=== PATIENT | male | born 1995 | race Two or more races ===

== ENCOUNTER 2022-12-11 02:15 | Emergency (ER) | payer SELFPAY | END 2022-12-11 03:31 | disposition home or self-care (01) | LOC: ANHED 03:09 | PROVIDERS: Emergency Provider Emergency Medicine | DX: L73.9 Follicular disorder, unspecified (principal) | CPT/HCPCS: 99283; A9270 ==

== ENCOUNTER 2022-12-12 23:20 | Inpatient (IN) | payer SELFPAY ==
--- NOTE | ~2022-12-12 | CT_ITS ---
EXAMINATION: CT diagnostic chest wo con DATE: 12/19/2022 19:35 INDICATION: Dialysis catheter position, right pleural effusion TECHNIQUE: Computed tomography (CT) of the chest was performed with 100 mL Omnipaque-350 intravenous contrast. Automated exposure control and iterative reconstruction technique were employed. The dose-l ength product was 182.81 mGy-cm. COMPARISON: X-ray chest, same date. FINDINGS: CHEST: Thoracic aorta: No significant dilation or calcification. Lung parenchyma and airways: Dependent right lower lobe opacification, dependent segmental/subsegment al right middle lobe, right upper lobe, and medial left lower lobe opacification. Thoracic inlet, axillae and chest wall: No thyroid or soft tissue mass. No axillary lymphadenopathy. Subcutaneous gas in the right lower neck. A tunnel right-sided dialysis catheter enters the right upp er chest and traverses along the right posterior medial aspect of the mediastinum, terminating in the right inferomedial pleural space. Mediastinum: No mass or lymphadenopathy. Heart and pericardium: Normal heart size. No pericardial effusion. Coronary artery calcifications: Absent. Pleura: Small volume right pneumothorax. Large volume mixed density right pleural fluid collection in cluding dependent hyperdensity likely representing blood clot. Upper abdomen: No significant finding. Thoracic bones: No acute osseous finding in the chest. IMPRESSION: Malpositioned right dialysis catheter terminating in the right inferomedial pleural space. Right hemopneumothorax with a small pneumothorax component and large hemothorax component, including a large volume of clot. Dependent multilobar pulmonary opacities presumably related to atelectasis, noting that infection or aspiration are not excluded. Results reported telephonically to Leonie Lopez RN by Dr. Rios at 7:50 PM on 12/19/2022. Reviewed, dictated and finalized at location K. IMPRESSION: Malpositioned right dialysis catheter terminating in the right inferomedial ple ural space. Right hemopneumothorax with a small pneumothorax component and large hemothorax component, including a large volume of clot. Dependent multilobar pulmonary opacities presumably related to atelectasis, not ing that infection or aspiration are not excluded. Results reported telephonically to Leonie Lopez RN by Dr. Rios at 7:50 PM on .
--- NOTE | ~2022-12-12 | CT_ITS ---
EXAMINATION: CT abdomen pelvis w con DATE: 12/13/2022 03:44 INDICATION: Lymphadenopathy. Inguinal abscess. TECHNIQUE: Computed tomography (CT) of the abdomen and pelvis was performed with 100 mL Omnipaque 350 intravenous contrast. Automated exposure control and iterative reconstruction technique were employe d. The dose-length product was 434.31 mGy-cm. COMPARISON: None. FINDINGS: The visualized portions of the lung bases demonstrate mild atelectasis. No pleural effusion . The heart size is normal. No pericardial effusion. There is food in the esophagus and may be dysmot ility or reflux. The liver, gallbladder, spleen, pancreas, adrenal glands, and kidneys are normal. Th e appendix is normal. There are no dilated loops of bowel. The prostate is mildly enlarged. There is fat stranding in left inguinal region and the scrotum, consistent with cellulitis. There is a 12 mm t hick-walled abscess in the scrotum. There is mild bilateral external iliac and left inguinal lymphade nopathy. There is mild lumbar spondylosis. IMPRESSION: 1. 12 mm abscess in the scrotum. 2. Fat stranding in left inguinal region and scrotum, consistent with cellulitis. 3. Mild left inguinal and bilateral external iliac lymphadenopathy, likely reactive. Reviewed, dictated and finalized at location E. IMPRESSION: 1. 12 mm abscess in the scrotum. 2. Fat stranding in left inguinal region and scrotum, consistent with celluliti s. 3. Mild left inguinal and bilateral external iliac lymphadenopathy, likely reac tive.
--- NOTE | ~2022-12-12 | NM_ITS ---
EXAMINATION: NM renal flow and function DATE: 12/18/2022 13:22 INDICATION: Worsening renal insufficiency TECHNIQUE: 8.5 mCi Tc-99m MAG3 was administered IV. 40 mg furosemide was administered IV immediately afterward. The patient was scanned in the supine position. A posterior abdominal radionuclide angiog shiva was obtained. A subsequent time course of static images of the kidneys, ureters, and bladder was obtained. COMPARISON: None FINDINGS: The posterior abdominal radionuclide angiogram and sequential static images show normal size, positio n, and morphology of the kidneys. Peak renal parenchymal uptake was >29 min in left kidney with scarlett nually rising renal activity curves through 30 minutes of imaging and >22 min in right kidney (normal peak 3-5 minutes) which appears to plateau and the final 2 minutes of the study. The relative early renal uptake was 49% on the left and 51% on the right (<40% is abnormal). No abnormalities of the u reters or bladder are seen. Indeterminate T1/2 clearance from both kidneys with no evident activity clearance from either kidney over the 30 minutes of imaging. Notes on interpretation: T1/2 <10 minutes is normal, 10-15 minutes is low grade obstruction of questi onable clinical significance, 15-20 minutes is partial obstruction that is likely clinically signific ant, >20 minutes is high grade obstruction. Note that false positives may be seen with supine positio geni, dehydration, severely dilated nonobstructed kidney, atonic collecting system, poor renal functi on, and chronic furosemide use. IMPRESSION: 1. Symmetric markedly delayed time to peak activity in both kidneys with no evident activity clearan ce of the 30 minutes of imaging consistent with severe bilateral nonspecific nephropathy. This preclu aamir assessment for obstruction however there is no evident hydronephrosis to suggest this. Reviewed, dictated and finalized at location A. IMPRESSION: 1. Symmetric markedly delayed time to peak activity in both kidneys with no ev ident activity clearance of the 30 minutes of imaging consistent with severe bi lateral nonspecific nephropathy. This precludes assessment for obstruction emanuel dexter there is no evident hydronephrosis to suggest this.
--- NOTE | ~2022-12-12 | US_ITS ---
US renal BI DATE: 12/16/2022 17:33 INDICATION: Acute renal insufficiency TECHNIQUE: Real-time imaging of kidneys and urinary bladder COMPARISON: 12/13/2022 CT abdomen pelvis FINDINGS: The kidneys each measure approximately 12 cm length. There is abnormal increased echogenici ty of the renal parenchyma bilaterally, a finding usually ascribed to chronic renal disease. No hydronephrosis of either kidney is detected. The urinary bladder is evacuated. IMPRESSION: Abnormal increased echogenicity throughout the cortex of both kidneys, suggesting bilater al chronic renal disease Reviewed, dictated and finalized at Location A. Reviewed, dictated and finalized at location A. IMPRESSION: Abnormal increased echogenicity throughout the cortex of both kidne ys, suggesting bilateral chronic renal disease
--- NOTE | ~2022-12-12 | XR_ITS ---
XR chest port-a-cath/central 12/19/2022 11:03 Indication: Dialysis catheter placement. Procedure: AP portable chest. With underlying compressive atelectasis. Comparison: No prior studies for comparison. Findings: Right IJ dual-lumen dialysis catheter tips in the caudal aspect of the SVC. Large right ple ural effusion with underlying compressive atelectasis. Cardiac contour is unremarkable. No pneumothor ax identified. Impression: 1: Dual-lumen dialysis catheter tips in the condyle aspect of the SVC just proximal to the cavoatrial junction. 2: Large right pleural effusion Reviewed, dictated and finalized at location A. Impression: 1: Dual-lumen dialysis catheter tips in the condyle aspect of the SVC just prox imal to the cavoatrial junction. 2: Large right pleural effusion
--- NOTE | ~2022-12-12 | US_ITS ---
EXAMINATION: US scrotum doppler DATE: 12/14/2022 11:45 INDICATION: Scrotal pain and swelling TECHNIQUE: Testicular sonogram utilizing grayscale and Doppler COMPARISON: CT, 12/13/2022 FINDINGS: The right testis measures 3 x 4.7 x 2.6 cm. The left testis measures 3.2 x 3.6 x 2.3 cm. Th ere is skin thickening of the scrotum. There are multiple hypoechoic areas seen in the skin of the sc rotum. A 3.9 x 1.9 x 1.7 cm hypoechoic area seen in the inferior/mid scrotum. There is a 3.4 x 6.6 x 2.4 cm hypoechoic area of the inferior/posterior mid scrotal sac. There is a 2 x 1.8 x 1.9 cm hypoech oic area superior to the left testicle. The largest visualized possible fluid collection measures 1.6 cm in the inferior/mid scrotum. There is normal vascular flow to both testes. The right epididymis i s normal with normal vascular flow. The left epididymis is normal with normal vascular flow. There is no varicocele or hydrocele. IMPRESSION: 1. Cellulitis with multiple areas of phlegmon/abscess of the scrotum. The largest possible fluid abelardo ection measures up to 1.6 cm in the inferior/mid scrotum. Reviewed, dictated and finalized at location B. IMPRESSION: 1. Cellulitis with multiple areas of phlegmon/abscess of the scrotum. The large st possible fluid collection measures up to 1.6 cm in the inferior/mid scrotum.
--- NOTE | ~2022-12-12 | XR_ITS ---
XR fl guide central line place Dialysis catheter placement TECHNIQUE: Fluoroscopy used during dialysis catheter placement performed by [Greg Travis] on 12/19/2022. 3 minutes 37 seconds of fluoroscopy time with 3 fluoroscopic images captured. FINDINGS: Correlate with procedure note. IMPRESSION: Fluoroscopy used during dialysis catheter placement.. Reviewed, dictated and finalized at location A.
[2022-12-12 23:24] VITALS: BP 119/68; PULSE 96; RESP 16; TEMP 37.2; O2SAT 97
[2022-12-13] VITALS (9 sets, daily range): BP systolic 97–111; BP diastolic 52–71; PULSE 68–91; RESP 15–18; TEMP 36.6–37.4; O2SAT 94–100; BMI 26.6
[2022-12-13] MEDS: MORPHINE SULFATE (*CRX) 4 MG/ML INJ IV PUSH ×4 (03:09→21:41)
[2022-12-13] MEDS: SODIUM CHLORIDE 0.9% IV 1,000 ML 999 ML IV CONT (03:09)
[2022-12-13 03:14] LABS: Basophils Percent Auto 0.3 % (0.2-1.2); Eosinophils Absolute Auto 0.2 K/mm3 (0-0.3); Eosinophils Percent Auto 1.3 % (0-4.4); Hematocrit 43.6 % (42.0-52.0); Hemoglobin 15.2 g/dL (14.0-18.0); Immature Granulocyte Percent A 0.7 % (0-0.5); Lymphocytes Percent Auto 13.7 % (18.3-44.2); Mean Corpuscular HGB Conc 34.9 g/dl (32-36); Mean Corpuscular Hemoglobin 30.2 pg (26-34); Mean Corpuscular Volume 86.7 fl (80-100); Mean Platelet Volume 9.4 fl (7.4-10.4); Monocytes Absolute Auto 1.4 K/mm3 (0.1-0.6); Monocytes Percent Auto 8.9 % (2.6-8.5); Neutrophils Absolute Auto 11.6 K/mm3 (1.3-6.7); Neutrophils Percent Auto 75.1 % (45.5-73.1); Platelet Count Result 250 k/mm3 (150-375); Red Blood Count 5.03 M/mm3 (4.6-6.20); White Blood Count 15.4 K/mm3 (4.5-10.0)
[2022-12-13 03:26] LABS: Alanine Aminotransferase 37 U/L (6-50); Albumin Level 4.6 g/dL (3.5-5.1); Alkaline Phosphatase 89 U/L (38-126); Anion Gap 10 mmol/L (8-16); Aspartate Amino Transferase 40 U/L (17-59); Bilirubin,Total 0.6 mg/dL (0.2-1.3); Blood Urea Nitrogen 13 mg/dL (9-20); Calcium 9.2 mg/dL (8.4-10.2); Carbon Dioxide 28 mmol/L (22-30); Chloride 98 mmol/L (98-107); Estimated CRCL calculation 98 ml/min; Estimated Glomerular Filt Rate > 60; Glucose 100 mg/dL (65-110); Potassium 4.2 mmol/L (3.4-5.0); Sodium 136 mmol/L (137-145)
[2022-12-13 03:27] LABS: Lactic Acid Reflex 1.6 mmol/L (0.7-2.0)
[2022-12-13] MEDS: diphenhydrAMINE HCl INJ 50 MG/ML VIAL 25 MG IV PUSH (04:33)
--- NOTE | 2022-12-13 04:44 | ED.GENADULT ---
HPI - General Adult General Chief complaint: Wound/Laceration Stated complaint: potential staph infection Time Seen by Provider: 12/13/22 02:31 History of Present Illness HPI narrative: Patient 27-year-old gentleman who presents the emergency department with chief complaint of swelling in the groin area. The patient reports he has recently been seen for folliculitis in his perineal area and inguinal area the patient was started on Bactrim and has taken this for a day and a half the patient reports he has had some drainage in the perineal area and reports that he has some lymph nodes that are swollen and reports the area is painful. Patient denies fever denies dysuria denies problems with defecation. Related Data Allergies Allergy/AdvReac Type Severity Reaction Status Date / Time No Known Allergies Allergy Verified 12/13/22 02:41 Review of Systems Review of Systems: A 10 system review of systems was completed on the patient and is negative except for what is stated in the HPI. Nursing and ancillary documentation was reviewed. Exam Narrative: GENERAL: Well-appearing, well-nourished, and in no acute distress. HEAD: Normocephalic, atraumatic. EYES: PERRLA and EOMI. ENT: Nares clear, no rhinorrhea or epistaxis. Mucous membranes moist. NECK: Supple. CHEST: Clear to auscultation. No respiratory distress. HEART: Regular rate and rhythm. No murmur heard. Normal peripheral pulses. ABDOMEN: Soft, nontender, nondistended, normal active bowel sounds. : There is lymphadenopathy present in the left inguinal area there is swelling of the scrotum there is no crepitance there is a small draining abscess in the perineal body area there is slight erythema of the scrotum EXTREMITIES: Normal range of motion. No edema. SKIN: Warm, dry, no rash. NEURO: No focal deficits. Alert and oriented x3. PSYCH: Normal mood and affect. Course Vital Signs Vital signs: Vital Signs Temperature 37.2 C 12/12/22 23:24 Pulse Rate 96 12/12/22 23:24 Respiratory Rate 16 12/12/22 23:24 Blood Pressure 119/68 12/12/22 23:24 Pulse Oximetry 97 12/12/22 23:24 Oxygen Delivery Room Air 12/12/22 23:24 Temperature 37.1 C 12/13/22 04:10 Pulse Rate 74 12/13/22 06:07 Respiratory Rate 15 12/13/22 06:07 Blood Pressure 97/61 L 12/13/22 06:07 Pulse Oximetry 98 12/13/22 06:07 Oxygen Delivery Room Air 12/12/22 23:24 Medical Decision Making MDM Narrative Medical decision making narrative: Differential diagnosis includes deep abscess, cellulitis, Laboratory studies were obtained and the patient which showed a white count of 15,000. There is no physical exam findings consistent with Angela's gangrene the patient is not a diabetic CT scan of the abdomen pelvis showed significant lymphadenopathy and also a large area of cellulitis with a small 12 mm abscess in the scrotum The case was discussed with urology who will consult on the patient the patient will be admitted to the hospitalist service for IV antibiotics and failed outpatient therapy. Vital Signs Vital Signs: Vital Signs Temperature 37.2 C 12/12/22 23:24 Pulse Rate 96 12/12/22 23:24 Respiratory Rate 16 12/12/22 23:24 Blood Pressure 119/68 12/12/22 23:24 Pulse Oximetry 97 12/12/22 23:24 Oxygen Delivery Room Air 12/12/22 23:24 Temperature 37.1 C 12/13/22 04:10 Pulse Rate 74 12/13/22 06:07 Respiratory Rate 15 12/13/22 06:07 Blood Pressure 97/61 L 12/13/22 06:07 Pulse Oximetry 98 12/13/22 06:07 Oxygen Delivery Room Air 12/12/22 23:24 Lab Data 12/13/22 03:03 12/13/22 03:03 Labs: Lab Results 12/13/22 12/13/22 Range/Units 03:03 04:52 WBC 15.4 H (4.5-10.0) K/mm3 RBC 5.03 (4.6-6.20) M/mm3 Hgb 15.2 (14.0-18.0) g/dL Hct 43.6 (42.0-52.0) % MCV 86.7 (80-100) fl MCH 30.2 (26-34) pg MCHC 34.9 (32-36) g/dl RDW 12.0 (11.5-14.5) % Plt Count
[2022-12-13 04:59] LABS: Appearance Urine Clear (Clear); Bilirubin Urine Negative (Negative); Blood Urine Negative (Negative); Color Urine Yellow (Yellow); Glucose Urine UA Negative (Negative); Ketones Urine Negative (Negative); Leukocyte Esterase Ur Negative LEU/UL (Negative); Nitrate Urine Negative (Negative); Protein Urine Negative (Negative)
[2022-12-13 05:07] LABS: Specific Grav Ur 1.097 (1.001-1.035)
[2022-12-13 05:09] LABS: Add Urine Microscopic? NO
[2022-12-13] MEDS: PIPERACILLN/TAZ 3.375GM/NS50ML 3.375 GM/50 ML BAG IVPB ×4 (06:49→23:15)
[2022-12-13] MEDS: SODIUM CHLORIDE 0.9% IV 1,000 ML 125 ML IV CONT (06:54)
--- NOTE | 2022-12-13 07:37 | PM.IMHP ---
H&P: HPI History of Present Illness Date/Time: 12/13/22 07:37 Chief Complaint: Groin pain, swelling and drainage Narrative: 27yo healthy male who presents with groin pain, swelling and drainage. Over the past 6 months, patient has noted intermittent groin rash that he has been treating with lotion. About 7-10 days ago patient noted multiple lumps in his groin. He has been staying with a friend and believes that they were related to flea bites. No fever or chills. He tried and triple antibiotic ointment for few days without benefit. He stopped this about 4 days ago. He tried alcohol spray once but that was too painful. He has been using Excedrin for pain and also was given [place] by a friend. He presented to the emergency room on 12/11/2022 and was diagnosed with folliculitis treated with Bactrim. He did note that the lesions came to a head. He did open these up with knife. It would drain yellow-green fluid and pain with improved. Lesions however would then increase in size. He has been eating okay but had decreased appetite. No nausea or vomiting. No symptoms of reflux. No constipation or diarrhea. He denies any chest pain shortness of breath but has been anxious/distressed with issues associated with his girlfriend. He has noted that he has had increasing lymph nodes multi in the left groin. Because of this reason he presented emergency room for evaluation because a friend fold admission be concerned about a potential staph infection. In the emergency room patient was hemodynamically stable. White count was [address] of the abdomen pelvis showed mild atelectasis, food in the esophagus and mildly enlarged prostate. There is fat stranding in left inguinal region and the scrotum consistent with cellulitis. This is a 12 mm thick walled abscess in the scrotum. He has mild bilateral external iliac and left inguinal lymphadenopathy. The case was discussed with Urology. Patient does not have diabetes. He denies any risk factors for HIV and declines testing at this time. Patient was started on Zosyn and Vanco and admitted for further care. Review of Systems Review of Systems: All systems reviewed & are unremarkable except as noted in HPI and below PMFSH Past Medical History Medical History (Updated 12/13/22 @ 07:54 by Emile Rooney MD) No significant past medical history Surgical History Surgical History (Updated 12/13/22 @ 07:48 by Emile Rooney MD) H/O inguinal hernia repair repaired at 24yo Family History Family History (Updated 12/13/22 @ 07:49 by Emile Rooney MD) Mother Schizophrenia Father Heart disease Cerebrovascular accident Diabetes mellitus Social History Social History (Updated 12/13/22 @ 07:51 by Emile Rooney MD) Social History: Patient is from [place] by way of [place]. He moved up from [place] about 6 months ago. He smokes 1 pack of cigarettes every 2 weeks. No drug use. He drinks but 2-3 alcoholic drinks per month on average. He is currently renting space from a friend. 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 Full code. Meds Home Medications and Allergies Allergies Allergy/AdvReac Type Severity Reaction Status Date / Time No Known Allergies Allergy Verified 12/13/22 02:41 Vital Signs Vital Signs - 24 hr 12/12/22 23:24 12/13/22 04:10 12/13/22 06:07 Temperature 98.9 F 98.7 F Pulse Rate 96 68 74 Respiratory Rate 16 15 15 Blood Pressure 119/68 109/71 97/61 L Pulse Oximetry 97 100 98 Oxygen Delivery Room Air 12/13/22 06:57 12/13/22 07:24 Temperature Pulse Rate 74 75 Respiratory Rate 15 18 Blood Pressure 97/61 L 111/62 Pulse Oximetry 100 100 Oxygen Delivery Exam Narrative: AF 98.7 111/62 75 18 100% ra Gen - well-nourished, well-developed male in no acute respiratory distress who is nontoxic-appearing lying semi recumbent in bed HEENT - normocephalic. Atraumatic. Pupils equal round and reactive. Extraocular m
--- NOTE | 2022-12-13 10:14 | WPDURCON ---
Assessment and Plan Assessment and plan (1) Cellulitis, scrotum: Code(s): N49.2 - Inflammatory disorders of scrotum Status: Acute Plan 27M with scrotal cellulitis - no indications currently for surgical intervention; he can eat; will continue to monitor for worsening Urology Consult Note HPI Date Seen: 12/13/22 Requesting Physician: Andrzej Harmon MD Primary Care Provider: [facility] Consult Narrative Narrative: Cayden Stiles is a 27 year old male admitted for scrotal cellulitis. Had a perineal abscess that spontaneously drained, but was failing outpatient antibiotics. CT shows cellulitis without drainable abscess, gas, etc. Never happened before. Review of Systems Review of Systems: All systems reviewed & are unremarkable except as noted in HPI and below PMFSH Past Medical History Medical History No significant past medical history Surgical History Surgical History H/O inguinal hernia repair repaired at 24yo Family History Family History Mother Schizophrenia Father Heart disease Cerebrovascular accident Diabetes mellitus Social History Social History Social History: Patient is from [place] by way of [place]. He moved up from [place] about 6 months ago. He smokes 1 pack of cigarettes every 2 weeks. No drug use. He drinks but 2-3 alcoholic drinks per month on average. He is currently renting space from a friend. 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 Meds Home Medications and Allergies Allergies Allergy/AdvReac Type Severity Reaction Status Date / Time No Known Allergies Allergy Verified 12/13/22 02:41 Vital Signs Vital Signs - 24 hr 12/12/22 23:24 12/13/22 04:10 12/13/22 06:07 Temperature 37.2 C 37.1 C Pulse Rate 96 68 74 Respiratory Rate 16 15 15 Blood Pressure 119/68 109/71 97/61 L Pulse Oximetry 97 100 98 Oxygen Delivery Room Air 12/13/22 06:57 12/13/22 07:24 12/13/22 09:00 Temperature 36.6 C Pulse Rate 74 75 79 Respiratory Rate 15 18 16 Blood Pressure 97/61 L 111/62 108/68 Pulse Oximetry 100 100 100 Oxygen Delivery Exam Narrative: normal appearing 27M. scrotal cellulitis and significant swelling without gas, abscess, or necrosis. pinpoint drainage spot in the perineum with no residual expressable fluid Results Labs 12/13/22 03:03 12/13/22 03:03 Labs: Short CBC 12/13/22 Range/Units 03:03 WBC 15.4 H (4.5-10.0) K/mm3 Hgb 15.2 (14.0-18.0) g/dL Hct 43.6 (42.0-52.0) % Plt Count 250 (150-375) k/mm3 BMP 12/13/22 03:03 Sodium 136 L Potassium 4.2 Chloride 98 Carbon Dioxide 28 BUN 13 Creatinine 1.00 Glucose 100 Calcium 9.2 Liver Function 12/13/22 Range/Units 03:03 Total Bilirubin 0.6 (0.2-1.3) mg/dL AST 40 (17-59) U/L ALT 37 (6-50) U/L Alkaline Phosphatase 89 (38-126) U/L Albumin 4.6 (3.5-5.1) g/dL Urine 12/13/22 Range/Units 04:52 Urine Color Yellow (Yellow) Urine Appearance Clear (Clear) Urine pH 6.0 (5.0-9.0) Ur Specific [place] 1.097 H (1.001-1.035) Urine Protein Negative (Negative) mg/dL Urine Glucose (UA) Negative (Negative) mg/dL
[2022-12-13 11:35] LABS: Basophils Percent Auto 0.2 % (0.2-1.2); Eosinophils Absolute Auto 0.2 K/mm3 (0-0.3); Eosinophils Percent Auto 1.2 % (0-4.4); Hematocrit 38.4 % (42.0-52.0); Hemoglobin 13.1 g/dL (14.0-18.0); Immature Granulocyte Absolute 0.09 K/mm3 (0.00-0.031); Immature Granulocyte Percent A 0.7 % (0-0.5); Lymphocytes Absolute Auto 1.22 K/mm3 (0.9-3.2); Lymphocytes Percent Auto 9.5 % (18.3-44.2); Mean Corpuscular HGB Conc 34.1 g/dl (32-36); Mean Corpuscular Hemoglobin 29.9 pg (26-34); Mean Corpuscular Volume 87.7 fl (80-100); Mean Platelet Volume 9.3 fl (7.4-10.4); Monocytes Absolute Auto 0.9 K/mm3 (0.1-0.6); Monocytes Percent Auto 6.9 % (2.6-8.5); Neutrophils Absolute Auto 10.5 K/mm3 (1.3-6.7); Neutrophils Percent Auto 81.5 % (45.5-73.1); Platelet Count Result 196 k/mm3 (150-375); Red Blood Count 4.38 M/mm3 (4.6-6.20); White Blood Count 12.9 K/mm3 (4.5-10.0)
--- NOTE | 2022-12-13 13:34 | ADMGEN ---
This patient, Cayden Stiles, was admitted to [facility] Room 319-01. Patient/family oriented to hospital policies and general routines including ID bracelet, bed and alarms, visiting hours, pain management, procedures, bathroom and other care routines, personal items, smoking policy, room service/diet, and visiting hours. Information on how to activate the Rapid Response Team has been discussed. Patient/Family are encouraged to report perceived risks to care and to ask questions if they do not understand what they are told or what they should do.
[2022-12-13] MEDS: HYDROcodone/acetaminophen (*CRX) 5-325 MG TABLET 1 TAB PO (17:01)
[2022-12-14] MEDS: HYDROcodone/acetaminophen (*CRX) 5-325 MG TABLET 1 TAB PO ×3 (03:08→18:25)
[2022-12-14 04:50] VITALS: BP 102/58; PULSE 80; RESP 16; TEMP 36.2; O2SAT 98
[2022-12-14] MEDS: PIPERACILLN/TAZ 3.375GM/NS50ML 3.375 GM/50 ML BAG IVPB ×3 (06:09→17:48)
[2022-12-14 07:27] LABS: Basophils Percent Auto 0.3 % (0.2-1.2); Eosinophils Absolute Auto 0.2 K/mm3 (0-0.3); Eosinophils Percent Auto 2.4 % (0-4.4); Hematocrit 41.5 % (42.0-52.0); Hemoglobin 13.8 g/dL (14.0-18.0); Immature Granulocyte Absolute 0.06 K/mm3 (0.00-0.031); Immature Granulocyte Percent A 0.6 % (0-0.5); Lymphocytes Absolute Auto 1.36 K/mm3 (0.9-3.2); Lymphocytes Percent Auto 14.1 % (18.3-44.2); Mean Corpuscular HGB Conc 33.3 g/dl (32-36); Mean Corpuscular Volume 90.2 fl (80-100); Mean Platelet Volume 9.6 fl (7.4-10.4); Monocytes Absolute Auto 0.7 K/mm3 (0.1-0.6); Monocytes Percent Auto 6.9 % (2.6-8.5); Neutrophils Absolute Auto 7.3 K/mm3 (1.3-6.7); Neutrophils Percent Auto 75.7 % (45.5-73.1); Platelet Count Result 221 k/mm3 (150-375); Red Cell Distribution Width 12.1 % (11.5-14.5); White Blood Count 9.7 K/mm3 (4.5-10.0)
[2022-12-14 07:34] LABS: Estimated CRCL calculation 108 ml/min; Estimated Glomerular Filt Rate > 60
--- NOTE | 2022-12-14 07:53 | WPDUROPN2 ---
Progress Note: A&P Assessment and Plan (1) Cellulitis, scrotum: Code(s): N49.2 - Inflammatory disorders of scrotum Status: Acute Assessment and Plan: Difficult to discern if there is any drainable fluid collection. Erythema seems improved over was described to be yesterday. Will get a scrotal ultrasound to look for drainable fluid collection. If present may need I and D. continue broad-spectrum antibiotics Subjective Subjective Date/Time Seen: 12/14/22 07:53 Interval history: Redness appears improved over what it was described to me by the urologist covering yesterday. He has multiple areas of firmness and induration in the suprapubic and scrotal area. It is difficult to discern if there is any drainable fluid collection He remains afebrile Exam Narrative: He is in no acute distress Normal breathing Alert orient x3 Normal phallus There is an area of induration in his left suprapubic area. There is a pinpoint area of drainage. I cannot express any fluid. There are 3 small areas of the scrotum where there is also some induration. Very difficult to tell if there is drainable fluid collection. There is no necrosis or signs of Angela's gangrene. Erythema appears improved over what was described to me Objective Data Vital Signs Vital Signs: Vital Signs - 24 hr 12/13/22 09:00 12/13/22 13:34 12/13/22 14:00 Temperature 97.8 F 97.9 F Pulse Rate 79 91 Respiratory Rate 16 16 Blood Pressure 108/68 103/52 L Pulse Oximetry 100 100 98 Oxygen Delivery Room Air 12/13/22 20:13 12/13/22 22:33 12/14/22 04:50 Temperature 99.4 F 98.8 F 97.2 F L Pulse Rate 85 80 Respiratory Rate 16 16 Blood Pressure 111/60 102/58 L Pulse Oximetry 94 98 Oxygen Delivery Intake/Output Intake/Output: Intake & Output 12/11/22 12/12/22 12/13/22 12/14/22 23:59 23:59 23:59 23:59 Intake Total 1680 550 Output Total 200 Balance 1480 550 Meds/Results Medications: Active Medications Generic Name Dose Route Start Last Admin Trade Name Freq PRN Reason Stop Dose Admin Acetaminophen 650 mg 12/13/22 07:58 Acetaminophen 325 Mg Tablet PO Q6H PRN Mild Pain (1-3) or Fever Hydrocodone Bitart/Acetaminophen 1 tab 12/13/22 07:58 12/14/22 03:08 Hydrocodone/Acetaminophen (*Crx) 5-325 Mg Tablet PO 1 tab Q6H PRN Administration Pain Rated 4-6 Piperacillin/Tazobactam/Dextrose 3.375 gm in 50 mls @ 100 mls/hr 12/13/22 12:00 12/14/22 06:39 Zosyn 3.375 Gm/Ns 50 Ml IVPB Infused Q6HR HOLGER Infusion Vancomycin HCl 1,500 mg in 500 mls @ 250 mls/hr 12/14/22 02:00 12/14/22 03:37 Vancomycin 1,500 Mg/D5w 500 Ml IVPB Infused Q18H HOLGER Infusion Morphine Sulfate 4 mg 12/13/22 06:44 12/13/22 21:41 Morphine Sulfate (*Crx) 4 Mg/Ml Inj IV PUSH 4 mg Q2H PRN Administration Pain Rated 7-10 Radiology Results: Labs Labs: Laboratory Results - last 24 hr 12/13/22 12/14/22 11:30 06:51 WBC 12.9 H 9.7 RBC 4.38 L 4.60 Hgb 13.1 L 13.8 L Hct 38.4 L 41.5 L MCV 87.7 90.2 MCH 29.9 30.0 MCHC 34.1 33.3 RDW 12.0 12.1 Plt Count 196 221 MPV 9.3 9.6 Immature Gran % (Auto) 0.7 H 0.6 H Neut % (Auto) 81.5 H 75.7 H Lymph % (Auto) 9.5 L 14.1 L Dawson % (Auto) 6.9 6.9 Eos % (Auto) 1.2 2.4 Baso % (Auto) 0.2 0.3 Lymph # (Auto) 1.22 1.36 Dawson # (Auto) 0.9 H 0.7 H Eos # (Auto) 0.2 0.2 Baso # (Auto) 0.0 0.0 Abs Immat Gran (auto) 0.09 H 0.06 H Absolute Neuts (auto) 10.5 H 7.3 H Absolute Nucleated RBC 0.0 0.0 Nucleated RBC % 0.0 0.0 Creatinine 0.90 Estim Creat Clear Calc 108 Estimated GFR > 60
[2022-12-14] MEDS: MORPHINE SULFATE (*CRX) 4 MG/ML INJ IV PUSH (10:33)
--- NOTE | 2022-12-14 10:37 | PC.NURSE ---
to ultrasound per w/c
[2022-12-14 14:00] VITALS: BP 119/60; PULSE 81; RESP 18; TEMP 37.3; O2SAT 99
--- NOTE | 2022-12-14 17:20 | PM.IMPN ---
Progress Note: A&P Assessment and Plan (1) Abscess of scrotum: Code(s): N49.2 - Inflammatory disorders of scrotum Status: Acute Assessment and Plan: Patient presents with complaints of swelling, pain and drainage from his groin area. CT scan shows 12mm abscess in the scrotum, fat stranding consistent with cellulitis and mild adenopathy. Prostate is mildly enlarged related to the inflammatory process. Zosyn and Vanco started. Urology was consulted. BCx NGTD WCx pending WBC normal now Scrotal US showing Cellulitis with multiple areas of phlegmon/abscess of the scrotum. The largest possible fluid collection measures up to 1.6 cm in the inferior/mid scrotum Pain controlled. Possible I&D tomorrow. Continue current pain control. Continue IV abx (2) Cellulitis, scrotum: Code(s): N49.2 - Inflammatory disorders of scrotum Status: Acute Assessment and Plan: As above (3) Inguinal adenopathy: Code(s): R59.0 - Localized enlarged lymph nodes Status: Acute Assessment and Plan: As above (4) Tobacco abuse: Code(s): Z72.0 - Tobacco use Status: Acute Assessment and Plan: Discussed beneftis of smoking cessation. Plan Food in the esophagus is unusual but the patient without symptoms of reflux. No complaints of achalasia. Will continue to monitor this. DVT prophylaxis -SCDs Code status -full Subjective Date/time seen: 12/14/22 17:20 Interval history: 27yo healthy male here for scrotal and groin redness, pain and swelling. Pain better controlled. eating normally. Exam Narrative: AF 99.2 119/60 81 18 99% ra Gen - NARD Chest - CTA bilaterally, nml RR CV - RRR S1/S2 Abd - soft, NT/ND -uncircumcised. Firm mass noted mid scrotum that with developing pustule and mild erythema. At the base of scrotum, firm mass was open and draining small yellowish white material. Erythematous patch with induration noted in the left inguinal area that was less red and less tender. Ext - no edema. Psych - normal mood and affect. Skin -as above Objective Data Vital Signs Vital Signs: Vital Signs - 24 hr 12/13/22 20:13 12/13/22 22:33 12/14/22 04:50 Temperature 99.4 F 98.8 F 97.2 F L Pulse Rate 85 80 Respiratory Rate 16 16 Blood Pressure 111/60 102/58 L Pulse Oximetry 94 98 12/14/22 14:00 Temperature 99.2 F Pulse Rate 81 Respiratory Rate 18 Blood Pressure 119/60 Pulse Oximetry 99 Intake/Output Intake/Output: Intake & Output 12/11/22 12/12/22 12/13/22 12/14/22 23:59 23:59 23:59 23:59 Intake Total 1680 1320 Output Total 200 Balance 1480 1320 Meds/Results Medications: Active Medications Generic Name Dose Route Start Last Admin Trade Name Freq PRN Reason Stop Dose Admin Acetaminophen 650 mg 12/13/22 07:58 Acetaminophen 325 Mg Tablet PO Q6H PRN Mild Pain (1-3) or Fever Hydrocodone Bitart/Acetaminophen 1 tab 12/13/22 07:58 12/14/22 12:08 Hydrocodone/Acetaminophen (*Crx) 5-325 Mg Tablet PO 1 tab Q6H PRN Administration Pain Rated 4-6 Piperacillin/Tazobactam/Dextrose 3.375 gm in 50 mls @ 100 mls/hr 12/13/22 12:00 12/14/22 12:30 Zosyn 3.375 Gm/Ns 50 Ml IVPB Infused Q6HR HOLGER Infusion Vancomycin HCl 1,500 mg in 500 mls @ 250 mls/hr 12/14/22 02:00 12/14/22 03:37 Vancomycin 1,500 Mg/D5w 500 Ml IVPB Infused Q18H HOLGER Infusion Morphine Sulfate 4 mg 12/13/22 06:44 12/14/22 10:33 Morphine Sulfate (*Crx) 4 Mg/Ml Inj IV PUSH 4 mg Q2H PRN Administration Pain Rated 7-10 Radiology Results: ITS Impressions Abdomen/Pelvis CT 12/13/22 05:47 IMPRESSION: 1. 12 mm abscess in the scrotum. 2. Fat stranding in left inguinal region and scrotum, consistent with cellulitis. 3. Mild left inguinal and bilateral external iliac lymphadenopathy, likely reactive. Scrotum Ultrasound 12/14/22 13:45 IMPRESSION: 1. Cellulitis with multiple ar
[2022-12-14 20:26] LABS: Vancomycin Trough < 5.0 ug/mL (10.0-20.0)
[2022-12-14 21:07] VITALS: PULSE 75; RESP 14; TEMP 36.5; O2SAT 99
[2022-12-15] VITALS (11 sets, daily range): BP systolic 105–123; BP diastolic 49–80; PULSE 68–84; RESP 11–19; TEMP 36.4–37.3; O2SAT 99–100
[2022-12-15] MEDS: PIPERACILLN/TAZ 3.375GM/NS50ML 3.375 GM/50 ML BAG IVPB ×4 (00:31→18:03)
[2022-12-15] MEDS: MORPHINE SULFATE (*CRX) 4 MG/ML INJ IV PUSH ×2 (00:32→18:03)
[2022-12-15 06:42] LABS: Estimated CRCL calculation 121 ml/min; Estimated Glomerular Filt Rate > 60
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
--- NOTE | 2022-12-15 14:18 | WPDANESEPPF ---
Anes - Initial Pre Proc Eval Procedure: Operation Date: 12/15/22 15:45 Proposed Procedures p Incision and Debridement Scrotal Abscess - Noel Wiley MD Date/Time: 12/15/22 14:18 Surgeon: Andrzej Harmon MD Pre Op Diagnosis: Scrotal Cellulitis/Abscess/ Inguinal Lymphadenopat Patient Data Age: 27 Gender: M Height: 1.75 m Weight: 81.8 kg Last Vital Signs Temp 36.9 C 12/15/22 13:58 Pulse 83 12/15/22 13:58 Resp 16 12/15/22 13:58 BP 122/74 12/15/22 13:58 Pulse Ox 99 12/15/22 13:58 O2 Del Method Room Air 12/15/22 08:00 Allergies Allergy/AdvReac Type Severity Reaction Status Date / Time No Known Allergies Allergy Verified 12/13/22 02:41 Home Medications Medication Instructions Recorded Confirmed Type No Home Medications 12/13/22 12/13/22 History Laboratory Tests 12/14/22 12/15/22 18:56 05:53 Creatinine 0.80 mg/dL (0.7-1.3) Estim Creat Clear Calc 121 ml/min Estimated GFR > 60 (59 - ) Vancomycin Trough < 5.0 L ug/mL (10.0-20.0) Patient hx anesthesia problems: none Family hx anesthesia problems: none Results Review: All pre-operative results and documents have been reviewed as part of the pre-operative evaluation. [facility] Past Medical History Medical History No significant past medical history Surgical History Surgical History H/O inguinal hernia repair repaired at 24yo Family History Family History Mother Schizophrenia Father Heart disease Cerebrovascular accident Diabetes mellitus Social History Social History Social History: Patient is from [place] by way of [place]. He moved up from [place] about 6 months ago. He smokes 1 pack of cigarettes every 2 weeks. No drug use. He drinks but 2-3 alcoholic drinks per month on average. He is currently renting space from a friend. 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 Full code. Smoking status: Current some day smoker Tobacco type: cigarettes Second hand tobacco smoke exposure: No Alcohol intake: never Substance use: never Lack of Transportation: No Lack of Food: Often True Current Housing: I Do Not Have Housing Concerned About Future Housing: YES Difficulty Paying Gas/Electric Bills: YES Difficulty Paying for Meds: YES Currently Unemployed: No Education: High School Diploma/GED Difficulty w/ Childcare or Family Care: No Spiritual care concerns: No Anes - Eval Final PreProcedure Day of Procedure 12/15/22 14:18 Patient weight: normal Heart: regular rate and rhythm Lungs: clear to auscultation Airway: Mallampati scale class II Neurological: alert and oriented Last oral intake: >/= 8 hours ASA classification: II Emergent: no Anesthetic plan: proceed Anesthesia type and monitoring: general LMA and standard monitoring Results Review: All pre-operative results and documents have been reviewed as part of the pre-operative evaluation. Informed Consent: The patient's anesthetic plan and its attendant risks and benefits were discussed with the patient/family/POA. Questions were solicited and answers provided to the satisfaction of the patient/family/POA.
--- NOTE | 2022-12-15 14:23 | WPDHPUPDATE1 ---
History and Physical Update Update Date/Time: 12/15/22 14:23 History and Physical has been reviewed, including an updated exam of the patient. There are NO changes in the patient's condition. Risks, benefits, and alternatives have been discussed and questions answered. Patient agrees to proceed with procedure. Proceed with Incision and drainage of scrotal abscess
[2022-12-15] MEDS: LACTATED RINGERS 1,000 ML 30 ML IV CONT (14:30)
[2022-12-15] MEDS: BUPivacaine HCL 0.5% PF 30 ML VIAL INFILTRATE (15:14)
[2022-12-15] MEDS: ceFAZolin SODIUM 1 GM VIAL (15:14)
--- NOTE | 2022-12-15 15:35 | W.PM.PROC2 ---
Procedure Note - Detailed Date of Procedure 12/15/22 Pre-op Diagnosis Scrotal Cellulitis/Abscess/ Inguinal Lymphadenopat Post-op Diagnosis Same Procedure Performed Incision and drainage of 3 scrotal abscesses 1 of which was a left inguinal abscess, excision of scrotal lesion left hemiscrotum Surgeon Noel Wiley MD Anesthesia General Description of Procedure Patient is taken to the operative suite and correctly identified. Once anesthesia was obtained he was placed in frog-leg position and prepped and draped usual sterile fashion. Patient has a abscess in the left suprapubic inguinal area. This was incised with cultures taken of it. The abscess tracked down to the left. This was copiously irrigated and packed with iodoform. A 2nd area was then located in the inferior scrotum. This also was incised with cultures taken. It measured about 3 cm x 1-1/2 cm. This tracked down to the perineal region. This also was packed with iodoform. A 3rd area was in the perineal region. It went approximately down 1 cm. This also was packed. Patient also had this scrotal lesion on the left which was somewhat indurated. We went ahead and excise this there was no purulence noted. Since this area was clean we went ahead and closed using 3-0 chromic in interrupted fashion. I anesthetized the cuts with Marcaine. Patient tolerated procedure well without any complications and was taken recovery stable condition. This completes dictation. Please send a copy to my office Estimated Blood Loss 10 Urine Output 200 Drains No Packing Yes Pathology Yes Complications No immediate complications Condition Stable Disposition PACU
[2022-12-15] MEDS: fentaNYL CITRATE INJ (*CRX) 100 MCG/2 ML VIAL 25 MCG IV PUSH ×4 (16:12→16:56)
[2022-12-16] MEDS: PIPERACILLN/TAZ 3.375GM/NS50ML 3.375 GM/50 ML BAG IVPB ×3 (00:07→12:17)
[2022-12-16 05:43] VITALS: BP 117/69; PULSE 74; RESP 12; TEMP 36.6; O2SAT 98
[2022-12-16 07:28] LABS: Estimated CRCL calculation 29 ml/min; Estimated Glomerular Filt Rate 21
[2022-12-16 08:00] VITALS: PULSE 74; RESP 12; O2SAT 98
[2022-12-16] MEDS: HYDROcodone/acetaminophen (*CRX) 5-325 MG TABLET 1 TAB PO (08:13)
--- NOTE | 2022-12-16 08:27 | PM.IMPN ---
Progress Note: A&P Assessment and Plan (1) Abscess of scrotum: Code(s): N49.2 - Inflammatory disorders of scrotum Status: Acute Assessment and Plan: Patient presents with complaints of swelling, pain and drainage from his groin area. CT scan shows 12mm abscess in the scrotum, fat stranding consistent with cellulitis and mild adenopathy. Prostate is mildly enlarged related to the inflammatory process. Zosyn and Vanco started. Urology was consulted. BCx NGTD WCx Staph aureus WBC normal now Scrotal US showing Cellulitis with multiple areas of phlegmon/abscess of the scrotum. The largest possible fluid collection measures up to 1.6 cm in the inferior/mid scrotum Pain controlled. I&D 12/14 Continue current pain control. Continue IV abx 12/16: sudden increase in creatinine, likely due to contrast plus vanc and zosyn, d/c all abx, monitor vanc levels, IVF, nephro consult pending (2) Cellulitis, scrotum: Code(s): N49.2 - Inflammatory disorders of scrotum Status: Acute Assessment and Plan: As above (3) Inguinal adenopathy: Code(s): R59.0 - Localized enlarged lymph nodes Status: Acute Assessment and Plan: As above (4) Tobacco abuse: Code(s): Z72.0 - Tobacco use Status: Acute Assessment and Plan: Discussed beneftis of smoking cessation. Plan Food in the esophagus is unusual but the patient without symptoms of reflux. No complaints of achalasia. Will continue to monitor this. DVT prophylaxis -SCDs Code status -full Subjective Date/time seen: 12/16/22 08:27 Interval history: 27 y/o healthy male here for scrotal and groin redness, pain and swelling. No complaints. Eager to go home and see girlfriend. Upset that his kidney numbers jumped up so much today. No overnight events noted. No chest pain or shortness of breath. No nausea, vomiting or diarrhea. No fevers or chills. Review of Systems Review of Systems: 12 point review of systems was assessed and was negative except as noted in the HPI Exam Narrative: General: No acute distress, alert and oriented per baseline HEENT: Atraumatic, normocephalic, mucous membranes moist CV: Regular rate and rhythm, S1, S2 Lungs: Clear to auscultation bilaterally, no rales or crackles noted, no wheezes, good air entry Abdomen: Soft, nontender, nondistended Extremities: Normal to inspection Skin: No rashes noted, no lesions or wounds seen Psych: Euthymic, normal affect Objective Data Vital Signs Vital Signs: Vital Signs - 24 hr 12/15/22 13:58 12/15/22 14:18 12/15/22 15:43 Temperature 98.4 F 99.2 F 99.2 F Pulse Rate 83 84 68 Respiratory Rate 16 14 15 Blood Pressure 122/74 119/67 107/56 L Pulse Oximetry 99 100 100 Oxygen Delivery Room Air Simple Face Mask Oxygen Flow Rate 10 12/15/22 15:58 12/15/22 16:13 12/15/22 16:28 Temperature Pulse Rate 84 82 77 Respiratory Rate 11 L 13 13 Blood Pressure 106/63 123/80 112/71 Pulse Oximetry 100 99 100 Oxygen Delivery Simple Face Mask Room Air Room Air Oxygen Flow Rate 12/15/22 16:43 12/15/22 16:57 12/15/22 21:19 Temperature 98.5 F Pulse Rate 74 81 81 Respiratory Rate 15 16 19 Blood Pressure 122/63 114/69 116/71 Pulse Oximetry 100 100 100 Oxygen Delivery Room Air Room Air Oxygen Flow Rate 12/16/22 05:43 12/16/22 08:00 Temperature 97.8 F Pulse Rate 74 74 Respiratory Rate 12 12 Blood Pressure 117/69 Pulse Oximetry 98 98 Oxygen Delivery Room Air Oxygen Flow Rate Intake/Output Intake/Output: Intake & Output 12/13/22 12/14/22 12/15/22 12/16/22 23:59 23:59 23:59 23:59 Intake Total 1680 2110 2500 600 Output Total 200 200 Balance 1480 2110 2300 600 Meds/Results Medications: Active Medications Generic Name Dose Route Start Last Admin Trade Name Freq PRN Reason Stop Dose Admin Acetaminophen 650 mg 12/13/22 07:58 Acetaminophen 325 Mg Tablet PO
--- NOTE | 2022-12-16 10:21 | WPDANESPN ---
Anes - Prog Note Post-Op Date/Time: 12/16/22 10:21 Cardiovascular status: normal Respiratory status: normal Airway patency: baseline Mental status: baseline Post-Op hydration status: normal Vital Signs: Last Vital Signs Temp 97.8 F 12/16/22 05:43 Pulse 74 12/16/22 08:00 Resp 12 12/16/22 08:00 BP 117/69 12/16/22 05:43 Pulse Ox 98 12/16/22 08:00 O2 Del Method Room Air 12/16/22 08:00 O2 Flow Rate 10 12/15/22 15:58 Pain Score (VAS): 3 I/O: Intake & Output 12/15/22 12/16/22 12/16/22 23:59 07:59 15:59 Intake Total 1660 600 500 Balance 1660 600 500 Laboratory Tests 12/14/22 06:51 12/16/22 06:57 12/16/22 06:57 Creatinine 3.50 H Estim Creat Clear Calc 29 Estimated GFR 21 L Microbiology 12/13/22 07:59 Abscess Wound Culture - Preliminary Staphylococcus aureus Post-procedural complaints: none Patient Feedback: Patient satisfied with anesthetic care.
[2022-12-16] MEDS: MORPHINE SULFATE (*CRX) 4 MG/ML INJ IV PUSH ×2 (10:22→22:10)
[2022-12-16 12:12] VITALS: BP 127/67; PULSE 75; RESP 16; TEMP 35.8; O2SAT 99
[2022-12-16 12:37] LABS: Basophils Percent Auto 0.3 % (0.2-1.2); Eosinophils Absolute Auto 0.1 K/mm3 (0-0.3); Eosinophils Percent Auto 0.7 % (0-4.4); Hematocrit 41.4 % (42.0-52.0); Hemoglobin 13.9 g/dL (14.0-18.0); Immature Granulocyte Percent A 0.7 % (0-0.5); Lymphocytes Absolute Auto 1.35 K/mm3 (0.9-3.2); Lymphocytes Percent Auto 9.9 % (18.3-44.2); Mean Corpuscular HGB Conc 33.6 g/dl (32-36); Mean Corpuscular Hemoglobin 29.6 pg (26-34); Mean Corpuscular Volume 88.3 fl (80-100); Monocytes Percent Auto 7.6 % (2.6-8.5); Neutrophils Absolute Auto 11.1 K/mm3 (1.3-6.7); Neutrophils Percent Auto 80.8 % (45.5-73.1); Platelet Count Result 246 k/mm3 (150-375); Red Blood Count 4.69 M/mm3 (4.6-6.20); Red Cell Distribution Width 11.9 % (11.5-14.5); White Blood Count 13.7 K/mm3 (4.5-10.0)
[2022-12-16 12:47] VITALS: TEMP 36.8
[2022-12-16 12:48] LABS: Alanine Aminotransferase 43 U/L (6-50); Albumin Level 3.9 g/dL (3.5-5.1); Alkaline Phosphatase 105 U/L (38-126); Anion Gap 11 mmol/L (8-16); Aspartate Amino Transferase 42 U/L (17-59); Bilirubin,Total 0.5 mg/dL (0.2-1.3); Blood Urea Nitrogen 18 mg/dL (9-20); Calcium 8.9 mg/dL (8.4-10.2); Carbon Dioxide 24 mmol/L (22-30); Chloride 101 mmol/L (98-107); Estimated CRCL calculation 24 ml/min; Estimated Glomerular Filt Rate 17; Glucose 127 mg/dL (65-110); Potassium 3.9 mmol/L (3.4-5.0); Sodium 136 mmol/L (137-145)
[2022-12-16 14:02] LABS: Vancomycin Trough 96.4 ug/mL (10.0-20.0)
--- NOTE | 2022-12-16 14:53 | WPDUROPN2 ---
Progress Note: A&P Assessment and Plan (1) Cellulitis, scrotum: Code(s): N49.2 - Inflammatory disorders of scrotum Status: Acute Assessment and Plan: I removed packing, re-packed the wound with Iodoform packing and then placed a wet to dry dressing over the wound and covered with multiple dry 4x4's, then secured in place with scrotal support. Patient tolerated with Morphine but not well, I recommend staying another night for a dressing change tomorrow morning with new packing, then dressing changes at home daily and follow up in 1-2 weeks in the office after that. He seems to think it will be difficult to pack the wounds himself at home. (2) Abscess of scrotum: Code(s): N49.2 - Inflammatory disorders of scrotum Status: Acute (3) Inguinal adenopathy: Code(s): R59.0 - Localized enlarged lymph nodes Status: Acute Assessment and Plan: I removed packing, re-packed the wound with Iodoform packing and then placed a wet to dry dressing over the wound and covered with multiple dry 4x4's, then secured in place with scrotal support. Subjective Subjective Date/Time Seen: 12/16/22 14:53 Post Op day: 1 Interval history: S/P Incision and drainage of 3 scrotal abscesses 1 of which was a left inguinal abscess, excision of scrotal lesion left hemiscrotum. The patient is having moderate to severe pain with activity that hydrocodone is not treating well. I pre-treated him with a dose of Morphine to do his dressing changes this morning. He is tolerating his diet well. Review of Systems Constitutional: Constitutional: Reports difficulty sleeping, Reports lethargy and Reports malaise Cardiovascular: Cardiovascular: Denies chest pain Respiratory: Respiratory: Reports no additional respiratory complaints Gastrointestinal: Gastrointestinal: Denies abdominal pain, Denies nausea and Denies vomiting Genitourinary: Genitourinary: Denies hematuria, Reports genital pain, Denies flank pain, Denies penile discharge, Reports scrotal swelling, Reports testicular pain, Denies urinary frequency, Denies urinary hesitancy, Denies urinary incontinence and Denies urinary urgency Exam Const: General: cooperative and comfortable Resp: Effort & Inspection: normal respiratory effort Cardio: Rate: regular rate GI: GI Palp: Yes Soft to palpation and No Tenderness to palpation present (GI) Other: Left groin incision is packed with Iodoform packing with a Gauze Dressing in place. Scrotal Support Also in place. Gauze dressings are dried with blood. : General: Yes no CVA tenderness Penis: Yes normal penis and Yes uncircumcised Meatus: meatus normal Scrotum: no ecchymosis, not edematous, no scrotal swelling and other (Scrotal and Perineal Incision are packed with Iodiform Packing/Gauze Dressi) Other: Gauze dressings are dried with blood, not saturated. Extrem: Right lower extremity: no edema Left lower extremity: no edema Objective Data Vital Signs Vital Signs: Vital Signs - 24 hr 12/15/22 15:43 12/15/22 15:58 12/15/22 16:13 Temperature 99.2 F Pulse Rate 68 84 82 Respiratory Rate 15 11 L 13 Blood Pressure 107/56 L 106/63 123/80 Pulse Oximetry 100 100 99 Oxygen Delivery Simple Face Mask Simple Face Mask Room Air Oxygen Flow Rate 10 10 12/15/22 16:28 12/15/22 16:43 12/15/22 16:57 Temperature Pulse Rate 77 74 81 Respiratory Rate 13 15 16 Blood Pressure 112/71 122/63 114/69 Pulse Oximetry 100 100 100 Oxygen Delivery Room Air Room Air Room Air Oxygen Flow Rate 12/15/22 21:19 12/16/22 05:43 12/16/22 08:00 Temperature 98.5 F 97.8 F Pulse Rate 81 74 74 Respiratory Rate 19 12 12 Blood Pressure 116/71 117/69 Pulse Oximetry 100 98 98 Oxygen Delivery Room Air Oxygen Flow Rate 12/16/22 12:12 12/16/22 12:47 Temperature 96.5 F L 98.2 F Pulse Rate 75 Respiratory Rate 16 Blood Pressure 127/67 Pulse Oximetry 99 Oxygen Delivery Oxygen Flow Rate Int
--- NOTE | 2022-12-16 15:00 | PM.CNNEP ---
Assessment and Plan Assessment and plan (1) HUE (acute kidney injury): Code(s): N17.9 - Acute kidney failure, unspecified Status: Acute Assessment and Plan: normal creatinine at basline AM labs today (12/16) with a creatinine of 3.5mg/dl repeat labs subsequently with a creatinine of 4.3mg/dl suspect multifactorial etiology: contrast exposure possible antibiotics (zosyn and vancomycin) prerenal factors infection (with progression to ATN) other? follow-up on urine studies, CPK, and renal ultrasound agree with trial of IVFs follow trend of labs and UOP (2) Abscess of scrotum: Code(s): N49.2 - Inflammatory disorders of scrotum Status: Acute Assessment and Plan: s/p I & D of 3 scrotal abscesses (1 of which was a left inguinal abscess) associated with #3 antibiotics on hold given #1 pain control local wound care Urology following (3) Cellulitis, scrotum: Code(s): N49.2 - Inflammatory disorders of scrotum Status: Acute Assessment and Plan: see #2 I will continue follow patient with you while he remains hospitalized and make further recommendations as needed. Thank you for allowing me to participate in the care of this patient. History of Present Illness Reason for Consult Consult date: 12/16/22 Chief Complaint Chief complaint: Scrotal Cellulitis/Abscess/ Inguinal Lymphadenopat History of Present Illness Narrative: The patient is a 27-year-old male with no significant past medical history who presented to [facility] with complaints of groin pain in association with swelling and drainage. According to the patient, over the last 6 months or so, he has noted intermittent groin rash that he has been treating with [id number] lotions. Approximately 7-10 days prior to his presentation to the ER, he noted multiple ?lumps? in his groin area. Initially thought they related to fully/insect bites as he has been staying at a friend's house in that time frame. He reports no overt fevers or chills and has tried multiple topical antibiotic ointments for these ?lumps? without any significant benefit. He then attempted using alcohol sprays and pads but this caused too much discomfort to continue. As the pain continued to worsen, he used Excedrin to help with that symptom and apparently has used [place] given to him by a friend. He eventually presented to [facility] Emergency Room on 12/11/2022 and was diagnosed with folliculitis and prescribed oral Bactrim and subsequent the discharged home. Eventually, these ?lumps? came to ahead and he apparently open them up with a knife which led to yellow greenish drainage with significant improvement in his pain. However, the lesions continued to be present and would sometimes increase in size even after this intervention. Along with these draining lesions, he has noticed increasing lymph nodes in his left groin area as well. As his friend informed him that he may have a serious staph infection he presented to the emergency room on 12/13/2022 again for assessment of these issues. Workup and evaluation emergency room demonstrated the patient be hemodynamically stable. Routine blood test [place] [id number] within normal chemistry, normal renal function, normal electrolytes, and a urinalysis that was unremarkable. A CT scan of his abdomen pelvis demonstrated an enlarged prostate fat stranding in left inguinal regional and the scrotum consistent with cellulitis along with a 12 mm thick walled abscess in the scrotum. There was also mild bilateral external iliac and left inguinal lymphadenopathy as well. The emergency room consulted Urology and after appropriate cultures were obtained, he was started on broad-spectrum IV antibiotic therapy with subsequent admission to the hospital. Since his admission, he has been treated with ongoing IV antibiotics and has been se
[2022-12-16] MEDS: SODIUM CHLORIDE 0.9% IV 1,000 ML 999 ML IV CONT (15:27)
[2022-12-16 20:00] VITALS: PULSE 75; RESP 16; O2SAT 99
[2022-12-16 21:00] LABS: Creatinine Urine 47.3 mg/dL
[2022-12-16 21:21] LABS: Sodium Urine Random 106 meq/L
[2022-12-16 21:40] LABS: Urea Random Urine < 67 MG/DL
[2022-12-16 21:42] VITALS: BP 122/76; PULSE 81; RESP 20; TEMP 36.7; O2SAT 100
[2022-12-16 21:51] LABS: Eosinophil Urine None Seen % (None Seen); Urine Eos QC 2nd Tech Confirmed
[2022-12-16 21:54] LABS: Total Protein Urine Random > 600 mg/dL
[2022-12-17] MEDS: HYDROcodone/acetaminophen (*CRX) 5-325 MG TABLET 1 TAB PO (02:23)
[2022-12-17 03:07] LABS: Appearance Urine Cloudy (Clear); Bacteria Urine None Seen /hpf; Bilirubin Urine Negative (Negative); Blood Urine Trace (Negative); Color Urine Yellow (Yellow); Glucose Urine UA Trace mg/dL (Negative); Ketones Urine Negative (Negative); Leukocyte Esterase Ur Trace LEU/UL (Negative); Mucus Urine Present /lpf; Nitrate Urine Negative (Negative); Protein Urine 4+ mg/dL (Negative); Specific Grav Ur 1.016 (1.001-1.035); Squamous Epithelial Cell Urine Occasional /hpf (Few); Urobilinogen Urine 0.2 mg/dL (<2.0); WBC Urine 21-50 /hpf
[2022-12-17 03:11] LABS: Add Urine Microscopic? YES
[2022-12-17 05:56] VITALS: BP 105/62; PULSE 89; RESP 18; TEMP 37.4; O2SAT 97
[2022-12-17 06:51] LABS: Basophils Absolute Auto 0.1 K/mm3 (0.0-0.1); Basophils Percent Auto 0.4 % (0.2-1.2); Eosinophils Absolute Auto 0.1 K/mm3 (0-0.3); Eosinophils Percent Auto 0.9 % (0-4.4); Hematocrit 37.8 % (42.0-52.0); Hemoglobin 12.8 g/dL (14.0-18.0); Immature Granulocyte Absolute 0.13 K/mm3 (0.00-0.031); Immature Granulocyte Percent A 0.9 % (0-0.5); Lymphocytes Absolute Auto 1.58 K/mm3 (0.9-3.2); Lymphocytes Percent Auto 11.5 % (18.3-44.2); Mean Corpuscular HGB Conc 33.9 g/dl (32-36); Mean Corpuscular Hemoglobin 29.8 pg (26-34); Mean Corpuscular Volume 87.9 fl (80-100); Mean Platelet Volume 8.9 fl (7.4-10.4); Monocytes Absolute Auto 1.6 K/mm3 (0.1-0.6); Monocytes Percent Auto 11.6 % (2.6-8.5); Neutrophils Absolute Auto 10.3 K/mm3 (1.3-6.7); Neutrophils Percent Auto 74.7 % (45.5-73.1); Platelet Count Result 219 k/mm3 (150-375); White Blood Count 13.8 K/mm3 (4.5-10.0)
[2022-12-17 07:05] LABS: Alanine Aminotransferase 37 U/L (6-50); Albumin Level 3.3 g/dL (3.5-5.1); Alkaline Phosphatase 93 U/L (38-126); Anion Gap 7 mmol/L (8-16); Aspartate Amino Transferase 32 U/L (17-59); Bilirubin,Total 0.6 mg/dL (0.2-1.3); Blood Urea Nitrogen 29 mg/dL (9-20); Calcium 8.3 mg/dL (8.4-10.2); Carbon Dioxide 23 mmol/L (22-30); Chloride 102 mmol/L (98-107); Creatine Kinase 23 U/L (55-170); Estimated CRCL calculation 13 ml/min; Estimated Glomerular Filt Rate 8; Glucose 89 mg/dL (65-110); Potassium 4.3 mmol/L (3.4-5.0); Sodium 132 mmol/L (137-145)
[2022-12-17 07:52] LABS: Hepatitis B Surface Antigen Negative (Negative)
[2022-12-17 08:09] LABS: Hepatitis B Surface Anti Res Negative
[2022-12-17] MEDS: MORPHINE SULFATE (*CRX) 4 MG/ML INJ IV PUSH ×3 (09:31→21:50)
--- NOTE | 2022-12-17 12:17 | PM.PNNEP ---
Progress Note: A&P Assessment and Plan (1) HUE (acute kidney injury): Code(s): N17.9 - Acute kidney failure, unspecified Status: Acute Assessment and Plan: normal creatinine at basline AM labs today (12/16) with a creatinine of 3.5mg/dl repeat labs subsequently with a creatinine of 4.3mg/dl suspect multifactorial etiology: contrast exposure possible antibiotics (zosyn and vancomycin) -- vancomycin trough levels high; vanco caused HUE versus HUE led to vanco retention(?) prerenal factors infection (with progression to ATN) other? evaluation to date: renal ultrasound w/o obstruction but with findings suggestive of CKD nephrotic range proteinuria urine electrolytes non-prerenal urine eosinophils negatve CPK low no improvement with trial of IVFs follow trend of labs and UOP (2) Abscess of scrotum: Code(s): N49.2 - Inflammatory disorders of scrotum Status: Acute Assessment and Plan: s/p I & D of 3 scrotal abscesses (1 of which was a left inguinal abscess) associated with #3 antibiotics on hold given #1 pain control local wound care Urology following (3) Cellulitis, scrotum: Code(s): N49.2 - Inflammatory disorders of scrotum Status: Acute Assessment and Plan: see #2 Long and extensive (> 20 minutes) discussion with patient regarding his progressive renal dysfunction/HUE with the presumption that combo of contrast, vancomycin, and zosyn along with infection are to blame for this; I voiced my concerns that he may need dialysis if his renal function does not improve as well as consideration for using dialysis to clear the vancomycin out of his system to see if this will help improve his renal function. He was quite clear to me that he does not want to do dialysis or have a dialysis catheter placed at all. Hence, will continue conservative/supportive therapy for now. Will continue to follow. Subjective Date/time seen: 12/17/22 12:17 Interval history: Follow-up for acute kidney injury/acute renal failure. Renal function contines to decline quite significantly in the last 24 - 48 hours; despite worsening creatinine, no critical electrolytes, acid-base derangements, volume overload, or signs of uremia; no apparent issues overnight or earlier this AM; reports that his kidneys are burning but unable to elaborate much more than that. Exam Narrative: General: WD/WN male in NAD Heart: normal S1 and S2; no rub Lungs: clear to auscultation Abdomen: soft, nontender, nondistended, positive bowel sounds Extremities: no cyanosis or clubbing; no edema Skin: warm and dry; scrotal support/dressings in place Objective Data Vital Signs Vital Signs: Vital Signs Temp Pulse Resp BP Pulse Ox O2 Del Method 12/17/22 08:40 Room Air 12/17/22 05:56 99.3 F 89 18 105/62 97 12/16/22 21:42 98.1 F 81 20 122/76 100 12/16/22 20:00 75 16 99 Room Air Intake/Output Intake/Output: Intake & Output 12/14/22 12/15/22 12/16/22 12/17/22 23:59 23:59 23:59 23:59 Intake Total 2110 2500 1510 400 Output Total 200 25 Balance 2110 2300 1485 400 Meds/Results Medications: Active Medications Generic Name Dose Route Start Last Admin Trade Name Aloq PRN Reason Stop Dose Admin Acetaminophen 650 mg 12/13/22 07:58 Acetaminophen 325 Mg Tablet PO Q6H PRN Mild Pain (1-3) or Fever Hydrocodone Bitart/Acetaminophen 1 tab 12/13/22 07:58 12/17/22 02:23 Hydrocodone/Acetaminophen (*Crx) 5-325 Mg Tablet PO 1 tab Q6H PRN Administration Pain Rated 4-6 Morphine Sulfate 4 mg 12/13/22 06:44 12/17/22 09:31 Morphine Sulfate (*Crx) 4 Mg/Ml Inj IV PUSH 4 mg Q2H PRN Administration Pain Rated 7-10 Radiology Results: ITS Impressions Abdomen/Pelvis CT 12/13/22 05:47 IMPRESSION: 1. 12 mm abscess in the scrotum. 2. Fat stranding in left inguinal region and scrotum, consi
--- NOTE | 2022-12-17 12:23 | WPDUROPN2 ---
Progress Note: A&P Assessment and Plan (1) Cellulitis, scrotum: Code(s): N49.2 - Inflammatory disorders of scrotum Status: Acute Assessment and Plan: I removed packing, re-packed the wound with Iodoform packing and then placed a wet to dry dressing over the wound and covered with multiple dry 4x4's, then secured in place with scrotal support. Patient tolerated with Morphine but not well, I recommend staying another night for a dressing change tomorrow morning with new packing, then dressing changes at home daily and follow up in 1-2 weeks in the office after that. He seems to think it will be difficult to pack the wounds himself at home. (2) Inguinal adenopathy: Code(s): R59.0 - Localized enlarged lymph nodes Status: Acute Assessment and Plan: I removed packing, re-packed the wound with Iodoform packing and then placed a wet to dry dressing over the wound and covered with multiple dry 4x4's, then secured in place with scrotal support. (3) Abscess of scrotum: Code(s): N49.2 - Inflammatory disorders of scrotum Status: Acute (4) HUE (acute kidney injury): Code(s): N17.9 - Acute kidney failure, unspecified Status: Acute Assessment and Plan: Creatinine jumped up to 8.30, a LUBNA was done by Nephrology yesterday: Abnormal increased echogenicity throughout the cortex of both kidneys, suggesting bilateral chronic renal disease. Nephrology following, appreciate their input. No obstruction noted on LUBNA, or hydronephrosis that would warrant a repeat CT. CT from 12/13/22 didn't show any obstruction in the bilateral kidneys. Subjective Subjective Date/Time Seen: 12/17/22 12:23 Post Op day: 2 Interval history: S/P Incision and drainage of 3 scrotal abscesses 1 of which was a left inguinal abscess, excision of scrotal lesion left hemiscrotum. The patient is having moderate to severe pain with activity that hydrocodone is not treating well. I pre-treated him with a dose of Morphine to do his dressing changes this morning. He is tolerating his diet well. Review of Systems Constitutional: Constitutional: Reports difficulty sleeping, Reports lethargy and Reports malaise Cardiovascular: Cardiovascular: Denies chest pain Respiratory: Respiratory: Reports no additional respiratory complaints Gastrointestinal: Gastrointestinal: Denies abdominal pain, Denies nausea and Denies vomiting Genitourinary: Genitourinary: Denies hematuria, Reports genital pain, Denies flank pain, Denies penile discharge, Reports scrotal swelling, Reports testicular pain, Denies urinary frequency, Denies urinary hesitancy, Denies urinary incontinence and Denies urinary urgency Exam Const: General: cooperative and comfortable Resp: Effort & Inspection: normal respiratory effort Cardio: Rate: regular rate GI: GI Palp: Yes Soft to palpation and No Tenderness to palpation present (GI) Other: Left groin incision is packed with Iodoform packing with a Gauze Dressing in place. Scrotal Support Also in place. Gauze dressings are dried with blood. : General: Yes no CVA tenderness Penis: Yes normal penis and Yes uncircumcised Meatus: meatus normal Scrotum: no ecchymosis, not edematous, no scrotal swelling and other (Scrotal and Perineal Incision are packed with Iodiform Packing/Gauze Dressi) Other: Gauze dressings are dried with blood, not saturated. Extrem: Right lower extremity: no edema Left lower extremity: no edema Objective Data Vital Signs Vital Signs: Vital Signs - 24 hr 12/16/22 12:47 12/16/22 20:00 12/16/22 21:42 Temperature 98.2 F 98.1 F Pulse Rate 75 81 Respiratory Rate 16 20 Blood Pressure 122/76 Pulse Oximetry 99 100 Oxygen Delivery Room Air 12/17/22 05:56 Temperature 99.3 F Pulse Rate 89 Respiratory Rate 18 Blood Pressure 105/62 Pulse Oximetry 97 Oxygen Delivery Intake/Output Intake/Output: Intake & Output 12/14/22 12/15/22 12/16/22 09
--- NOTE | 2022-12-17 15:02 | PM.IMPN ---
Progress Note: A&P Assessment and Plan (1) Abscess of scrotum: Code(s): N49.2 - Inflammatory disorders of scrotum Status: Acute Assessment and Plan: Patient presents with complaints of swelling, pain and drainage from his groin area. CT scan shows 12mm abscess in the scrotum, fat stranding consistent with cellulitis and mild adenopathy. Prostate is mildly enlarged related to the inflammatory process. Zosyn and Vanco started. Urology was consulted. BCx NGTD WCx Staph aureus WBC normal now Scrotal US showing Cellulitis with multiple areas of phlegmon/abscess of the scrotum. The largest possible fluid collection measures up to 1.6 cm in the inferior/mid scrotum Pain controlled. I&D 12/14 Continue current pain control. Continue IV abx 12/16: sudden increase in creatinine, likely due to contrast plus vanc and zosyn, d/c all abx, monitor vanc levels, IVF, nephro consult pending 12/17: severe renal failure with minimal urine output, all abx d/c for now, monitor vanc levels (2) Cellulitis, scrotum: Code(s): N49.2 - Inflammatory disorders of scrotum Status: Acute Assessment and Plan: As above (3) Inguinal adenopathy: Code(s): R59.0 - Localized enlarged lymph nodes Status: Acute Assessment and Plan: As above (4) Tobacco abuse: Code(s): Z72.0 - Tobacco use Status: Acute Assessment and Plan: Discussed beneftis of smoking cessation. Plan DVT prophylaxis -SCDs Code status -full Subjective Date/time seen: 12/17/22 15:02 Interval history: 27 y/o healthy male here for scrotal and groin redness, pain and swelling. No overnight events noted. No chest pain or shortness of breath. No nausea, vomiting or diarrhea. No fevers or chills. He is complaining of some flank discomfort. He also has some abdominal bloating. He denies any urinary output today. He just wants to go home and is sick of needles. Review of Systems Review of Systems: 12 point review of systems was assessed and was negative except as noted in the HPI Exam Narrative: General: No acute distress, alert and oriented per baseline HEENT: Atraumatic, normocephalic, mucous membranes moist CV: Regular rate and rhythm, S1, S2 Lungs: Clear to auscultation bilaterally, no rales or crackles noted, no wheezes, good air entry Abdomen: Soft, nontender, nondistended Extremities: Normal to inspection Skin: No rashes noted, no lesions or wounds seen Psych: Euthymic, normal affect Objective Data Vital Signs Vital Signs: Vital Signs - 24 hr 12/16/22 20:00 12/16/22 21:42 12/17/22 05:56 Temperature 98.1 F 99.3 F Pulse Rate 75 81 89 Respiratory Rate 16 20 18 Blood Pressure 122/76 105/62 Pulse Oximetry 99 100 97 Oxygen Delivery Room Air Intake/Output Intake/Output: Intake & Output 12/14/22 12/15/22 12/16/22 12/17/22 23:59 23:59 23:59 23:59 Intake Total 2110 2500 1510 400 Output Total 200 25 Balance 2110 2300 1485 400 Meds/Results Medications: Active Medications Generic Name Dose Route Start Last Admin Trade Name Freq PRN Reason Stop Dose Admin Acetaminophen 650 mg 12/13/22 07:58 Acetaminophen 325 Mg Tablet PO Q6H PRN Mild Pain (1-3) or Fever Hydrocodone Bitart/Acetaminophen 1 tab 12/13/22 07:58 12/17/22 02:23 Hydrocodone/Acetaminophen (*Crx) 5-325 Mg Tablet PO 1 tab Q6H PRN Administration Pain Rated 4-6 Morphine Sulfate 4 mg 12/13/22 06:44 12/17/22 09:31 Morphine Sulfate (*Crx) 4 Mg/Ml Inj IV PUSH 4 mg Q2H PRN Administration Pain Rated 7-10 Radiology Results: ITS Impressions Abdomen/Pelvis CT 12/13/22 05:47 IMPRESSION: 1. 12 mm abscess in the scrotum. 2. Fat stranding in left inguinal region and scrotum, consistent with cellulitis. 3. Mild left inguinal and bilateral external iliac lymphadenopathy, likely reactive. Scrotum Ultrasound 12/14/22 13:45 IMPRES
[2022-12-17 19:45] VITALS: PULSE 73; RESP 20; O2SAT 100
--- NOTE | 2022-12-17 19:48 | PC.NURSE ---
Pt in room all day. Pt resting in bed. Pt reports pain. Dressing changed and packed by urology. Pt was premedicated for dressing change. Pt has been compliant with care. Pt was provided with a new scrotal sling. Pt has been monitored for any changes in status.
--- NOTE | 2022-12-17 21:33 | ECG_ITS ---
Measurements Intervals [place] Rate: 88 P: 37 MA: 143 QRS: 38 QRSD: 82 T: 16 QT: 319 QTc: 386 Interpretive Statements SINUS RHYTHM NORMAL ECG NO PREVIOUS ECG AVAILABLE FOR COMPARISON Electronically Signed On 12-18-2022 6:20:58 CDT by Jamie Esparza D.O.
[2022-12-17 22:00] VITALS: BP 145/70; PULSE 73; RESP 20; TEMP 37.2; O2SAT 100
[2022-12-17 22:26] LABS: Troponin I < 0.012 ng/mL (0.000-0.034)
[2022-12-17] MEDS: BELLADONNA ALK/PHENOB ELIX 10 ML, MAG HYDROX/ALUMINUM HYD/SIMETH 30 ML, LIDOCAINE HCL 2... PO (23:30)
[2022-12-18 07:36] LABS: Basophils Percent Auto 0.2 % (0.2-1.2); Eosinophils Absolute Auto 0.2 K/mm3 (0-0.3); Eosinophils Percent Auto 1.1 % (0-4.4); Hematocrit 37.1 % (42.0-52.0); Hemoglobin 12.6 g/dL (14.0-18.0); Immature Granulocyte Absolute 0.16 K/mm3 (0.00-0.031); Lymphocytes Absolute Auto 1.01 K/mm3 (0.9-3.2); Lymphocytes Percent Auto 6.4 % (18.3-44.2); Mean Corpuscular Hemoglobin 29.4 pg (26-34); Mean Corpuscular Volume 86.7 fl (80-100); Monocytes Absolute Auto 1.8 K/mm3 (0.1-0.6); Monocytes Percent Auto 11.3 % (2.6-8.5); Neutrophils Absolute Auto 12.6 K/mm3 (1.3-6.7); Platelet Count Result 228 k/mm3 (150-375); Red Blood Count 4.28 M/mm3 (4.6-6.20); Red Cell Distribution Width 11.7 % (11.5-14.5); White Blood Count 15.7 K/mm3 (4.5-10.0)
[2022-12-18 07:37] VITALS: BP 119/68; PULSE 101; RESP 18; TEMP 36.9; O2SAT 95
[2022-12-18 08:00] LABS: Alanine Aminotransferase 26 U/L (6-50); Albumin Level 3.2 g/dL (3.5-5.1); Alkaline Phosphatase 96 U/L (38-126); Anion Gap 14 mmol/L (8-16); Aspartate Amino Transferase 20 U/L (17-59); Bilirubin,Total 0.7 mg/dL (0.2-1.3); Blood Urea Nitrogen 44 mg/dL (9-20); Calcium 8.4 mg/dL (8.4-10.2); Carbon Dioxide 18 mmol/L (22-30); Chloride 99 mmol/L (98-107); Estimated CRCL calculation 9 ml/min; Estimated Glomerular Filt Rate 5; Glucose 94 mg/dL (65-110); Potassium 4.4 mmol/L (3.4-5.0); Sodium 131 mmol/L (137-145)
[2022-12-18] MEDS: MORPHINE SULFATE (*CRX) 4 MG/ML INJ IV PUSH ×2 (09:13→13:14)
[2022-12-18] MEDS: CEPHALEXIN 250 MG CAPSULE PO ×2 (09:25→21:01)
--- NOTE | 2022-12-18 11:59 | PC.NURSE ---
Pt transferred to nuclear medicine for testing at 11:59.
--- NOTE | 2022-12-18 13:10 | P.PNNP_ITS ---
Progress Note: A&P Assessment and Plan (1) HUE (acute kidney injury): Code(s): N17.9 - Acute kidney failure, unspecified Status: Acute Assessment and Plan: * continues to worsen * normal creatinine at baseline * on 12/16/22, AM labs with a creatinine of 3.5mg/dl * repeat labs on 12/16/22, subsequently with a creatinine of 4.3mg/dl * on 12/17/22, creatinine up ro 8.3mg/dl * today, up to 11.7mg/dl * suspect multifactorial etiology: * contrast exposure * possible antibiotics (zosyn and vancomycin) -- vancomycin trough levels high; vanco caused HUE versus HUE led to vanco retention(?) * prerenal factors * infection (with progression to ATN) * other? * evaluation to date: * renal ultrasound w/o obstruction but with findings suggestive of CKD * nephrotic range proteinuria * urine electrolytes non-prerenal * urine eosinophils negatve * CPK low * no improvement with trial of IVFs * concerning that he has a mild acidosis along with drop in urine production * check renal scan * follow trend of labs and UOP (2) Abscess of scrotum: Code(s): N49.2 - Inflammatory disorders of scrotum Status: Acute Assessment and Plan: * s/p I & D of 3 scrotal abscesses (1 of which was a left inguinal abscess) * associated with #3 * antibiotics on hold given #1 * pain control * local wound care * Urology following (3) Cellulitis, scrotum: Code(s): N49.2 - Inflammatory disorders of scrotum Status: Acute Assessment and Plan: * see #2 Will continue to follow -- not willing to consider dialysis at this time. Subjective Date/time seen: 12/18/22 13:10 Interval history: Follow-up for acute kidney injury/acute renal failure. Renal function continues to worsen as evident by trend of AM labs over the last few days; he states he feels a bit worse today in comparison to yesterday; more concerning is that he states his urine output has significantly dropped off in the last 24 hours as well; continues to state that his kidneys really hurt as well. Exam Narrative: General: WD/WN male in NAD Heart: normal S1 and S2; no rub Lungs: clear to auscultation Abdomen: soft, nontender, nondistended, positive bowel sounds Extremities: no cyanosis or clubbing; no edema Skin: warm and intact; scrotal support/dressings in place Objective Data Vital Signs Vital Signs: Vital Signs Temp Pulse Resp BP Pulse Ox O2 Del Method 12/18/22 12:00 99.1 F 89 16 121/83 98 12/18/22 08:00 Room Air 12/18/22 07:37 98.4 F 101 H 18 119/68 95 12/17/22 19:45 73 20 100 Room Air 12/17/22 22:00 98.9 F 73 20 145/70 H 100 Intake/Output Intake/Output: Intake & Output 12/15/22 12/16/22 12/17/22 12/18/22 23:59 23:59 23:59 23:59 Intake Total 2500 1510 800 60 Output Total 200 25 Balance 2300 1485 800 60 Meds/Results Medications: Active Medications Generic Name Dose Route Start Last Admin Trade Name Freq PRN Reason Stop Dose Admin Acetaminophen 650 mg 12/13/22 07:58 Acetaminophen 325 Mg Tablet PO Q6H PRN Mild Pain (1-3) or Fever Hydrocodone Bitart/Acetaminophen 1 tab 0
--- NOTE | 2022-12-18 13:10 | PM.PNNEP ---
Progress Note: A&P Assessment and Plan (1) HUE (acute kidney injury): Code(s): N17.9 - Acute kidney failure, unspecified Status: Acute Assessment and Plan: continues to worsen normal creatinine at baseline on 12/16/22, AM labs with a creatinine of 3.5mg/dl repeat labs on 12/16/22, subsequently with a creatinine of 4.3mg/dl on 12/17/22, creatinine up ro 8.3mg/dl today, up to 11.7mg/dl suspect multifactorial etiology: contrast exposure possible antibiotics (zosyn and vancomycin) -- vancomycin trough levels high; vanco caused HUE versus HUE led to vanco retention(?) prerenal factors infection (with progression to ATN) other? evaluation to date: renal ultrasound w/o obstruction but with findings suggestive of CKD nephrotic range proteinuria urine electrolytes non-prerenal urine eosinophils negatve CPK low no improvement with trial of IVFs concerning that he has a mild acidosis along with drop in urine production check renal scan follow trend of labs and UOP (2) Abscess of scrotum: Code(s): N49.2 - Inflammatory disorders of scrotum Status: Acute Assessment and Plan: s/p I & D of 3 scrotal abscesses (1 of which was a left inguinal abscess) associated with #3 antibiotics on hold given #1 pain control local wound care Urology following (3) Cellulitis, scrotum: Code(s): N49.2 - Inflammatory disorders of scrotum Status: Acute Assessment and Plan: see #2 Will continue to follow -- not willing to consider dialysis at this time. Subjective Date/time seen: 12/18/22 13:10 Interval history: Follow-up for acute kidney injury/acute renal failure. Renal function continues to worsen as evident by trend of AM labs over the last few days; he states he feels a bit worse today in comparison to yesterday; more concerning is that he states his urine output has significantly dropped off in the last 24 hours as well; continues to state that his kidneys really hurt as well. Exam Narrative: General: WD/WN male in NAD Heart: normal S1 and S2; no rub Lungs: clear to auscultation Abdomen: soft, nontender, nondistended, positive bowel sounds Extremities: no cyanosis or clubbing; no edema Skin: warm and intact; scrotal support/dressings in place Objective Data Vital Signs Vital Signs: Vital Signs Temp Pulse Resp BP Pulse Ox O2 Del Method 12/18/22 12:00 99.1 F 89 16 121/83 98 12/18/22 08:00 Room Air 12/18/22 07:37 98.4 F 101 H 18 119/68 95 12/17/22 19:45 73 20 100 Room Air 12/17/22 22:00 98.9 F 73 20 145/70 H 100 Intake/Output Intake/Output: Intake & Output 12/15/22 12/16/22 12/17/22 12/18/22 23:59 23:59 23:59 23:59 Intake Total 2500 1510 800 60 Output Total 200 25 Balance 2300 1485 800 60 Meds/Results Medications: Active Medications Generic Name Dose Route Start Last Admin Trade Name Freq PRN Reason Stop Dose Admin Acetaminophen 650 mg 12/13/22 07:58 Acetaminophen 325 Mg Tablet PO Q6H PRN Mild Pain (1-3) or Fever Hydrocodone Bitart/Acetaminophen 1 tab 12/13/22 07:58 12/17/22 02:23 Hydrocodone/Acetaminophen (*Crx) 5-325 Mg Tablet PO 1 tab Q6H PRN Administration Pain Rated 4-6 Cephalexin HCl 250 mg 12/18/22 09:00 12/18/22 09:25 Cephalexin 250 Mg Capsule PO 12/27/22 21:01 250 mg Q12HR HOLGER Administration Morphine Sulfate 4 mg 12/13/22 06:44 12/18/22 13:14 Morphine Sulfate (*Crx) 4 Mg/Ml Inj IV PUSH 4 mg Q2H PRN Administration Pain Rated 7-10 Radiology Results: ITS Impressions Abdomen/Pelvis CT 12/13/22 05:47 IMPRESSION: 1. 12 mm abscess in the scrotum. 2. Fat stranding in left inguinal region and scrotum, consistent with cellulitis. 3. Mild left inguinal and bilateral external iliac lymphadenopathy, likely reactive. Scrotum Ultrasound 12/14/22 13:45 IMPRESSION: 1. Cellulitis wit
--- NOTE | 2022-12-18 13:19 | WPDUROPN2 ---
Progress Note: A&P Assessment and Plan (1) HUE (acute kidney injury): Code(s): N17.9 - Acute kidney failure, unspecified Status: Acute Assessment and Plan: Creatinine increased, a LUBNA was done by Nephrology: Abnormal increased echogenicity throughout the cortex of both kidneys, suggesting bilateral chronic renal disease. Nephrology following, appreciate their input. No obstruction noted on LUBNA, or hydronephrosis that would warrant a repeat CT. CT from 12/13/22 didn't show any obstruction in the bilateral kidneys. ID recommends treatment for Infection with Cephalexin 250mg BID which is non nephrotoxic, he will remain off Vancomycin and creatinine will be watched to ensure it resolves or dialysis may be needed per nephrology. (2) Cellulitis, scrotum: Code(s): N49.2 - Inflammatory disorders of scrotum Status: Acute Assessment and Plan: I removed packing, re-packed the wound with Iodoform packing and then placed a wet to dry dressing over the wound and covered with multiple dry 4x4's, then secured in place with scrotal support. Patient tolerated with Morphine but not well, I recommend staying another night for a dressing change tomorrow morning with new packing, then dressing changes at home daily and follow up in 1-2 weeks in the office after that. He seems to think it will be difficult to pack the wounds himself at home. (3) Inguinal adenopathy: Code(s): R59.0 - Localized enlarged lymph nodes Status: Acute Assessment and Plan: I removed packing, re-packed the wound with Iodoform packing and then placed a wet to dry dressing over the wound and covered with multiple dry 4x4's, then secured in place with scrotal support. (4) Abscess of scrotum: Code(s): N49.2 - Inflammatory disorders of scrotum Status: Acute Subjective Subjective Date/Time Seen: 12/18/22 13:19 Post Op day: 3 Interval history: S/P Incision and drainage of 3 scrotal abscesses 1 of which was a left inguinal abscess, excision of scrotal lesion left hemiscrotum. The patient is having moderate to severe pain with activity that hydrocodone is not treating well. I pre-treated him with a dose of Morphine to do his dressing changes this morning. He is tolerating his diet well. His creatinine rosa to >8 yesterday from Vancomycin and it was stopped. Unfortunately off antibiotics for >24hours has caused his WBC to rise to 15. I discussed with the ID Pharmacist a plan to start oral antibiotics that are safe and not nephrotoxic. He recommends Cephalexin 250mg BID. Review of Systems Cardiovascular: Cardiovascular: Denies chest pain Respiratory: Respiratory: Reports no additional respiratory complaints Gastrointestinal: Gastrointestinal: Denies abdominal pain, Denies nausea and Denies vomiting Genitourinary: Genitourinary: Denies hematuria, Reports genital pain, Denies dysuria, Denies flank pain, Denies nocturia, Reports scrotal swelling, Reports testicular pain, Denies urinary frequency, Denies urinary hesitancy, Denies urinary incontinence and Denies urinary urgency Exam Narrative: General: WD/WN male in NAD Heart: normal S1 and S2; no rub Lungs: clear to auscultation Abdomen: soft, nontender, nondistended, positive bowel sounds Extremities: no cyanosis or clubbing; no edema Skin: warm and dry; scrotal support/dressings in place Const: General: cooperative and comfortable Resp: Effort & Inspection: normal respiratory effort Cardio: Rate: regular rate GI: GI Palp: Yes Soft to palpation and No Tenderness to palpation present (GI) Other: Left groin incision is packed with Iodoform packing with a Gauze Dressing in place. Scrotal Support Also in place. Gauze dressings are dried with blood. : General: Yes no CVA tenderness Penis: Yes normal penis and Yes uncircumcised Meatus: meatus normal Scrotum: no ecchymosis, not edematous, no scrotal swelling and other (Scrotal and Perineal I
--- NOTE | 2022-12-18 13:49 | PC.NURSE ---
pt returned from nuclear medicine approximately 1315.
--- NOTE | 2022-12-18 13:51 | PM.IMPN ---
Progress Note: A&P Assessment and Plan (1) Abscess of scrotum: Code(s): N49.2 - Inflammatory disorders of scrotum Status: Acute Assessment and Plan: Patient presents with complaints of swelling, pain and drainage from his groin area. CT scan shows 12mm abscess in the scrotum, fat stranding consistent with cellulitis and mild adenopathy. Prostate is mildly enlarged related to the inflammatory process. Zosyn and Vanco started. Urology was consulted. BCx NGTD WCx Staph aureus WBC normal now Scrotal US showing Cellulitis with multiple areas of phlegmon/abscess of the scrotum. The largest possible fluid collection measures up to 1.6 cm in the inferior/mid scrotum Pain controlled. I&D 12/14 Continue current pain control. Continue IV abx 12/16: sudden increase in creatinine, likely due to contrast plus vanc and zosyn, d/c all abx, monitor vanc levels, IVF, nephro consult pending 12/17: severe renal failure with minimal urine output, all abx d/c for now, monitor vanc levels 12/18: monitor vanc trough (2) Cellulitis, scrotum: Code(s): N49.2 - Inflammatory disorders of scrotum Status: Acute Assessment and Plan: As above (3) Inguinal adenopathy: Code(s): R59.0 - Localized enlarged lymph nodes Status: Acute Assessment and Plan: As above (4) Tobacco abuse: Code(s): Z72.0 - Tobacco use Status: Acute Assessment and Plan: Discussed beneftis of smoking cessation. (5) HUE (acute kidney injury): Code(s): N17.9 - Acute kidney failure, unspecified Status: Acute Assessment and Plan: severe, 2/2 vanc + zosyn + contrast appreciate nephrology consult will likely need dialysis, severely low UOP, worsening creatinine over 11, lethargy Plan DVT prophylaxis -SCDs Code status -full Subjective Date/time seen: 12/18/22 13:51 Interval history: 27 y/o healthy male here for scrotal and groin redness, pain and swelling. 12/17: No overnight events noted. No chest pain or shortness of breath. No nausea, vomiting or diarrhea. No fevers or chills. He is complaining of some flank discomfort. He also has some abdominal bloating. He denies any urinary output today. He just wants to go home and is sick of needles. 12/18: Patient states he feels worse than yesterday, he feels tired and weak. No NVD, CP/SOB, F/C. Review of Systems Review of Systems: 12 point review of systems was assessed and was negative except as noted in the HPI Exam Narrative: General: No acute distress, alert and oriented per baseline HEENT: Atraumatic, normocephalic, mucous membranes moist CV: Regular rate and rhythm, S1, S2 Lungs: Clear to auscultation bilaterally, no rales or crackles noted, no wheezes, good air entry Abdomen: Soft, nontender, nondistended Extremities: Normal to inspection Skin: No rashes noted, no lesions or wounds seen Psych: Euthymic, normal affect Objective Data Vital Signs Vital Signs: Vital Signs - 24 hr 12/17/22 22:00 12/17/22 19:45 12/18/22 07:37 Temperature 98.9 F 98.4 F Pulse Rate 73 73 101 H Respiratory Rate 20 20 18 Blood Pressure 145/70 H 119/68 Pulse Oximetry 100 100 95 Oxygen Delivery Room Air 12/18/22 08:00 Temperature Pulse Rate Respiratory Rate Blood Pressure Pulse Oximetry Oxygen Delivery Room Air Intake/Output Intake/Output: Intake & Output 12/15/22 12/16/22 12/17/22 12/18/22 23:59 23:59 23:59 23:59 Intake Total 2500 1510 800 0 Output Total 200 25 Balance 2300 1485 800 0 Meds/Results Medications: Active Medications Generic Name Dose Route Start Last Admin Trade Name Jamie PRN Reason Stop Dose Admin Acetaminophen 650 mg 12/13/22 07:58 Acetaminophen 325 Mg Tablet PO Q6H PRN Mild Pain (1-3) or Fever Hydrocodone Bitart/Acetaminophen 1 tab 12/13/22 07:58 12/17/22 02:23 Hydrocodone/Acetaminophen (*Crx) 5-325 Mg Tablet PO
[2022-12-18 14:00] VITALS: BP 121/83; PULSE 89; RESP 16; TEMP 37.3; O2SAT 98
[2022-12-18 16:13] LABS: Vancomycin Trough 90.3 ug/mL (10.0-20.0)
[2022-12-18] MEDS: oxyCODONE/ACETAMINOPHEN (*CRX) 5-325 MG TABLET 1 TABLET PO ×2 (17:09→21:02)
[2022-12-18 22:00] VITALS: BP 116/61; PULSE 86; RESP 16; TEMP 36.2; O2SAT 94
[2022-12-19] VITALS (17 sets, daily range): BP systolic 86–139; BP diastolic 52–93; PULSE 77–90; RESP 16–23; TEMP 36.2–37; O2SAT 92–99
[2022-12-19] MEDS: oxyCODONE/ACETAMINOPHEN (*CRX) 5-325 MG TABLET 1 TABLET PO ×2 (03:09→14:40)
[2022-12-19 06:29] LABS: Basophils Absolute Auto 0.1 K/mm3 (0.0-0.1); Basophils Percent Auto 0.3 % (0.2-1.2); Eosinophils Absolute Auto 0.2 K/mm3 (0-0.3); Eosinophils Percent Auto 1.7 % (0-4.4); Hematocrit 35.3 % (42.0-52.0); Hemoglobin 12.5 g/dL (14.0-18.0); Immature Granulocyte Absolute 0.15 K/mm3 (0.00-0.031); Lymphocytes Absolute Auto 1.03 K/mm3 (0.9-3.2); Lymphocytes Percent Auto 7.1 % (18.3-44.2); Mean Corpuscular HGB Conc 35.4 g/dl (32-36); Mean Corpuscular Hemoglobin 29.6 pg (26-34); Mean Corpuscular Volume 83.6 fl (80-100); Mean Platelet Volume 8.7 fl (7.4-10.4); Monocytes Absolute Auto 1.5 K/mm3 (0.1-0.6); Monocytes Percent Auto 10.6 % (2.6-8.5); Neutrophils Absolute Auto 11.5 K/mm3 (1.3-6.7); Neutrophils Percent Auto 79.3 % (45.5-73.1); Platelet Count Result 239 k/mm3 (150-375); Red Blood Count 4.22 M/mm3 (4.6-6.20); Red Cell Distribution Width 11.5 % (11.5-14.5); White Blood Count 14.5 K/mm3 (4.5-10.0)
[2022-12-19 06:43] LABS: Alanine Aminotransferase 28 U/L (6-50); Albumin Level 3.3 g/dL (3.5-5.1); Alkaline Phosphatase 109 U/L (38-126); Aspartate Amino Transferase 20 U/L (17-59); Blood Urea Nitrogen 56 mg/dL (9-20); Calcium 8.2 mg/dL (8.4-10.2); Carbon Dioxide 18 mmol/L (22-30); Chloride 96 mmol/L (98-107)
[2022-12-19 06:44] LABS: Anion Gap 15 mmol/L (8-16); Bilirubin,Total 0.6 mg/dL (0.2-1.3); Glucose 105 mg/dL (65-110); Potassium 4.4 mmol/L (3.4-5.0); Sodium 129 mmol/L (137-145)
[2022-12-19] MEDS: PANTOPRAZOLE 40 MG TABLET PO (06:45)
[2022-12-19 06:49] LABS: Complement C3 129 mg/dL (88-165)
[2022-12-19 06:52] LABS: Estimated CRCL calculation 7 ml/min; Estimated Glomerular Filt Rate 4
[2022-12-19 07:06] LABS: Vancomycin Random 83.8 ug/mL (10-20)
--- NOTE | 2022-12-19 08:45 | WPDUROPN2 ---
Progress Note: A&P Assessment and Plan (1) Abscess of scrotum: Code(s): N49.2 - Inflammatory disorders of scrotum Status: Acute (2) Cellulitis, scrotum: Code(s): N49.2 - Inflammatory disorders of scrotum Status: Acute Plan Wounds are healing with wet to dry dressing changes. He is on no antibiotics currently Subjective Subjective Date/Time Seen: 12/19/22 08:45 Interval history: Open wounds are healing well. They are planning for renal replacement therapy Exam Narrative: I examined his wounds. There is granulation tissue. There is no significant surrounding erythema. There is no drainage. Wounds are healing well Objective Data Vital Signs Vital Signs: Vital Signs - 24 hr 12/18/22 14:00 12/18/22 22:00 12/18/22 20:00 Temperature 99.1 F 97.1 F L Pulse Rate 89 86 Respiratory Rate 16 16 Blood Pressure 121/83 116/61 Pulse Oximetry 98 94 Oxygen Delivery Room Air 12/19/22 06:00 Temperature 97.4 F L Pulse Rate 90 Respiratory Rate 18 Blood Pressure 139/93 H Pulse Oximetry 96 Oxygen Delivery Intake/Output Intake/Output: Intake & Output 12/16/22 12/17/22 12/18/22 12/19/22 23:59 23:59 23:59 23:59 Intake Total 1510 800 480 300 Output Total 25 75 Balance 1485 800 480 225 Meds/Results Medications: Active Medications Generic Name Dose Route Start Last Admin Trade Name Freq PRN Reason Stop Dose Admin Acetaminophen 650 mg 12/13/22 07:58 Acetaminophen 325 Mg Tablet PO Q6H PRN Mild Pain (1-3) or Fever Hydrocodone Bitart/Acetaminophen 1 tab 12/13/22 07:58 12/17/22 02:23 Hydrocodone/Acetaminophen (*Crx) 5-325 Mg Tablet PO 1 tab Q6H PRN Administration Pain Rated 4-6 Cephalexin HCl 250 mg 12/18/22 09:00 12/18/22 21:01 Cephalexin 250 Mg Capsule PO 12/27/22 21:01 250 mg Q12HR HOLGER Administration Cefazolin Sodium 2 gm in 50 mls @ 100 mls/hr 12/19/22 08:28 Ancef 2 Gm/D5w 50 Ml IVPB 12/19/22 08:57 ONCE ONE Morphine Sulfate 4 mg 12/13/22 06:44 12/18/22 13:14 Morphine Sulfate (*Crx) 4 Mg/Ml Inj IV PUSH 4 mg Q2H PRN Administration Pain Rated 7-10 Oxycodone/Acetaminophen 1 tablet 12/18/22 16:25 12/19/22 03:09 Oxycodone/Acetaminophen (*Crx) 5-325 Mg Tablet PO 1 tablet Q4H PRN Administration Pain Rated 7-10 Pantoprazole Sodium 40 mg 12/19/22 09:00 12/19/22 06:45 Pantoprazole 40 Mg Tablet PO 40 mg Q12HR HOLGER Administration Radiology Results: ITS Impressions Abdomen/Pelvis CT 12/13/22 05:47 IMPRESSION: 1. 12 mm abscess in the scrotum. 2. Fat stranding in left inguinal region and scrotum, consistent with cellulitis. 3. Mild left inguinal and bilateral external iliac lymphadenopathy, likely reactive. Scrotum Ultrasound 12/14/22 13:45 IMPRESSION: 1. Cellulitis with multiple areas of phlegmon/abscess of the scrotum. The largest possible fluid collection measures up to 1.6 cm in the inferior/mid scrotum. Renal Ultrasound 12/16/22 21:31 IMPRESSION: Abnormal increased echogenicity throughout the cortex of both kidneys, suggesting bilateral chronic renal disease Renal Scan Nuclear Medicine 12/18/22 13:33 IMPRESSION: 1. Symmetric markedly delayed time to peak activity in both kidneys with no evident activity clearance of the 30 minutes of imaging consistent with severe bilateral nonspecific nephropathy. This precludes assessment for obstruction however there is no evident hydronephrosis to suggest this. Labs Labs: Laboratory Results - last 24 hr 12/18/22 12/18/22 12/19/22 14:12 17:00 06:18 WBC 14.5 H RBC 4.22 L Hgb 12.5 L Hct 35.3 L MCV 83.6 MCH 29.6 MCHC 35.4 RDW 11.5 Plt Count 239 MPV 8.7 Immature Gran % (Auto) 1.0 H Neut % (Auto) 79.3 H Lymph % (Auto) 7.1 L [place] % (Auto) 10.6 H Eos % (Auto) 1.7 Baso % (Auto) 0.3 Lymph # (Auto) 1.03 [place] # (Auto) 1.5 H Eo
--- NOTE | 2022-12-19 09:18 | WPDANESEPPF ---
Anes - Initial Pre Proc Eval Procedure: Operation Date: 12/19/22 09:30 Proposed Procedures p Insertion Duraflow Permacath Dialysis - Greg Travis MD Date/Time: 12/19/22 09:18 Surgeon: Andrzej Harmon MD Pre Op Diagnosis: Scrotal Cellulitis/Abscess/ Inguinal Lymphadenopat Patient Data Age: 27 Gender: M Height: 1.75 m Weight: 81.8 kg Last Vital Signs Temp 36.3 C L 12/19/22 06:00 Pulse 90 12/19/22 06:00 Resp 18 12/19/22 06:00 BP 139/93 H 12/19/22 06:00 Pulse Ox 96 12/19/22 06:00 O2 Del Method Room Air 12/18/22 20:00 O2 Flow Rate 10 12/15/22 15:58 Allergies Allergy/AdvReac Type Severity Reaction Status Date / Time No Known Allergies Allergy Verified 12/13/22 02:41 Home Medications Medication Instructions Recorded Confirmed Type No Home Medications 12/13/22 12/13/22 History Laboratory Tests 12/18/22 12/18/22 12/19/22 14:12 17:00 06:18 WBC 14.5 H K/mm3 (4.5-10.0) RBC 4.22 L M/mm3 (4.6-6.20) Hgb 12.5 L g/dL (14.0-18.0) Hct 35.3 L % (42.0-52.0) MCV 83.6 fl (80-100) MCH 29.6 pg (26-34) MCHC 35.4 g/dl (32-36) RDW 11.5 % (11.5-14.5) Plt Count 239 k/mm3 (150-375) MPV 8.7 fl (7.4-10.4) Immature Gran % (Auto) 1.0 H % (0-0.5) Neut % (Auto) 79.3 H % (45.5-73.1) Lymph % (Auto) 7.1 L % (18.3-44.2) [place] % (Auto) 10.6 H % (2.6-8.5) Eos % (Auto) 1.7 % (0-4.4) Baso % (Auto) 0.3 % (0.2-1.2) Lymph # (Auto) 1.03 K/mm3 (0.9-3.2) [place] # (Auto) 1.5 H K/mm3 (0.1-0.6) Eos # (Auto) 0.2 K/mm3 (0-0.3) Baso # (Auto) 0.1 K/mm3 (0.0-0.1) Abs Immat Gran (auto) 0.15 H K/mm3 (0.00-0.031) Absolute Neuts (auto) 11.5 H K/mm3 (1.3-6.7) Absolute Nucleated RBC 0.0 K/mm3 (0.0-0.012) Nucleated RBC % 0.0 % (0.0-0.2) Sodium 129 L mmol/L (137-145) Potassium 4.4 mmol/L (3.4-5.0) Chloride 96 L mmol/L (98-107) Carbon Dioxide 18 L mmol/L (22-30) Anion Gap 15 mmol/L (8-16) BUN 56 H D mg/dL (9-20) Creatinine 15.30 H mg/dL (0.7-1.3) Estim Creat Clear Calc 7 ml/min Estimated GFR 4 L (59 - ) Glucose 105 mg/dL (65-110) Calcium 8.2 L mg/dL (8.4-10.2) Total Bilirubin 0.6 mg/dL (0.2-1.3) AST 20 U/L (17-59) ALT 28 U/L (6-50) Alkaline Phosphatase 109 U/L (38-126) Total Protein 7.0 g/dL (6.3-8.2) Albumin Eyqkq-1-Mymrhrdvw Jkcqa-3-Mlxtrruud Bxfh-0-Qfkihaby Ggwe-6-Ysnsknpd Gamma Globulins Abnorm Protein Band 1 Abnorm Protein Band 3 PEP Interpretation Ur Random Creatinine U Random Total Protein Protein/Creatinin Ratio Urine Albumin U Nckyn-4-Odawdicy U Ohmld-3-Crjolubq U Beta Globulin U Gamma Globulin U Abnormal Prot Band 1 U Abnormal Prot Band 2 U Abnormal Prot Band 3 Urine PEP Interpret Vancomycin Trough 90.3 H* ug/mL (10.0-20.0) Random Vancomycin Cryoglobulin % Cryoglobulin Qualit SARAH Screen ANCA Screen Sm ([place]) Antibody Anti-DNA Antibody Glomerular Base Memb Ab Complement C3 Complement C4 Jeff/Lambda Ratio Free Jeff Light Chains Free Lambda Light Chain Anti-Streptolysin Scrn Blood Type A Positive Antibody Screen Negative 12/19/22 12/19/22 12/19/22 06:18 06:18 06:26 WBC R
[2022-12-19] MEDS: ceFAZolin 2 GM/D5W 50 ML 2 GM/50 ML BAG IVPB (09:26)
--- NOTE | 2022-12-19 09:30 | PM.CNGS ---
Assessment and Plan Assessment and plan (1) HUE (acute kidney injury): Code(s): N17.9 - Acute kidney failure, unspecified Status: Acute Assessment and Plan: Creatinine up to 15.3. (2) Admission for fitting and adjustment of vascular catheter: Code(s): Z45.2 - Encounter for adjustment and management of vascular access device Status: Acute Assessment and Plan: Will proceed with tunneled central venous catheter using ultrasound and fluoroscopy under anesthesia in the operating room. It seems that the infection associated with his scrotal abscess has resolved to the point that there is minimal risk of infection in placing the catheter at this point. Therefore will place a tunneled catheter which can be left in much longer than a temporary catheter and hopefully avoid a secondary procedure. I discussed the procedure the risks the benefits and the use of the catheter with the patient. All questions were answered. He agrees to go ahead. (3) Abscess of scrotum: Code(s): N49.2 - Inflammatory disorders of scrotum Status: Acute Assessment and Plan: Incision and drainage done 12/15/2022. Now basically only receiving wound care. History of Present Illness Consult details Consult date: 12/19/22 Reason for consult: other (Needs dialysis access) Requesting physician: Baldo Grier MD Narrative: Patient is a 27-year-old man who presented to the emergency room 6 days ago with a scrotal abscess. On 12/15 he underwent extensive incision and drainage by Urology. This has greatly improved and he has not been on antibiotics. He did, however suffer renal impairment and currently his serum creatinine is over 15 although his BUN is around 50. He is in need of dialysis today for at least renal replacement therapy. I was asked to place a central venous catheter for dialysis. Patient is seen and taken to the operating room for this purpose today. Review of Systems Review of Systems: All systems reviewed & are unremarkable except as noted in HPI and below (HPI) [facility] Past Medical History Medical History HUE (acute kidney injury) Surgical History Surgical History H/O inguinal hernia repair repaired at 24yo Family History Family History Mother Schizophrenia Father Heart disease Cerebrovascular accident Diabetes mellitus Social History Social History Social History: Patient is from [place] by way of [place]. He moved up from [place] about 6 months ago. He smokes 1 pack of cigarettes every 2 weeks. No drug use. He drinks but 2-3 alcoholic drinks per month on average. He is currently renting space from a friend. 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 Full code. Smoking status: Current some day smoker Tobacco type: cigarettes Second hand tobacco smoke exposure: No Alcohol intake: never Substance use: never Lack of Transportation: No Lack of Food: Often True Current Housing: I Do Not Have Housing Concerned About Future Housing: YES Difficulty Paying Gas/Electric Bills: YES Difficulty Paying for Meds: YES Currently Unemployed: No Education: High School Diploma/GED Difficulty w/ Childcare or Family Care: No Spiritual care concerns: No Meds Home Medications and Allergies Home Medications Medication Instructions Recorded Confirmed Type No Home Medications 12/13/22 12/13/22 History Allergies Allergy/AdvReac Type Severity Reaction Status Date / Time No Known Allergies Allergy Verified 12/13/22 02:41 Vital Signs Vital Signs - 24 hr 12/18/22 14:00 12/18/22 22:00 12/18/22 20:00 Temperature 37.3 C 36.2 C L Pulse Rate 89 86 Respiratory Rate 16 16 Blood Pressure 121/83 116/61 Pulse Oximetry 98 94 Oxygen Rhett
[2022-12-19] MEDS: LIDO 1%/EPINEPHRINE 1:100,000 20 ML VIAL 30 ML INFILTRATE (09:58)
[2022-12-19] MEDS: HEPARIN SODIUM, PORCINE 10,000 UNITS/10 ML VIAL 10000 UNITS IRRIGATION (10:00)
[2022-12-19] MEDS: SODIUM CHLORIDE 0.9% IV 500 ML 30 ML IV CONT (10:54)
--- NOTE | 2022-12-19 11:48 | W.PM.PROC2 ---
Procedure Note - Detailed Date of Procedure 12/19/22 Pre-op Diagnosis Acute kidney injury, inadequate venous access Post-op Diagnosis Same Procedure Performed Placement right internal jugular tunneled central venous dura flow catheter under fluoroscopy with ultrasound Surgeon Greg Travis MD Clinical Therapist Linh SOLISA Anesthesia MAC (G IV S) and Local (0.5% Marcaine with epinephrine) Indications Patient is a 27-year-old man who had a significant scrotal infection an abscess. Although this was drained in is healing well, he has developed oliguria and acute kidney injury. He is in need of renal replacement therapy and possibly dialysis. He is taken to surgery now for placement of a central venous catheter for that purpose. Findings Tip of the dialysis catheter was in the SVC and right atrial junction. He became hypoxemic during the procedure and postprocedure chest x-ray showed a large right pleural effusion but no infiltrate or pneumothorax. His oxygen saturations did improve during recovery. Description of Procedure Patient was taken to surgery and placed in a supine position. Some of the mccoy on his right upper neck was shaved as was right-sided chest air. It was shaved with clippers. The right neck right upper chest were then prepped and draped in sterile fashion. Initial approach was to the right internal jugular vein. I used ultrasound for this and was able to see the vein readily. Local was infiltrated and using ultrasound guidance the right internal jugular vein was cannulated. Back bleeding was sluggish but the guidewire did pass readily into the internal jugular vein and down into the vena cava, in fact inferior vena cava. This was determined by C-arm fluoroscopy. I then used fluoroscopy to map out the path of the tunneled dura flow catheter as it would lie on the chest and in the neck before going into the superior vena cava. I marked counter incisions on the chest in neck where we would tunnel the catheter. Local was infiltrated at each of these sites. Incisions were made at each site is well and also at the a exit point of the guide wire. I then tunneled the dura flow catheter retrograde until it exited in the right lower neck next to the guidewire. Under fluoroscopy, I then passed serial dilators over the guidewire into the internal jugular vein. Finally the largest dilator with sheath was passed over the guidewire under fluoroscopy into the SVC. The guidewire and introducer were removed. The dura flow catheter end was passed through the sheath and into the superior vena cava. The sheath was then removed. We checked the position of the catheter and initially it appeared to be in the SVC but not as distal as I had hoped. Additionally, it did not aspirate blood as readily as has necessary. While tunneling the dura flow catheter the patient started to develop some hypoxemia and also had some problems with coughing. By the time the catheter was in place and we were checking the flow, his sats were much lower than when we started and he was being given quite a bit of oxygen by the Department of Anesthesia. He remained stable. I advanced the catheter further so that it was more distal in the SVC and right at the junction with the right atrium. At this point the catheter aspirated blood and flushed easily with heparin. It was working well. Patient remains stable but requiring quite a bit of oxygen. The counter incisions were closed with subcuticular 4-0 Vicryl suture. The exit site of the dura flow catheter was closed with subcuticular 4-0 Vicryl suture as well to occluded around the catheter. A hemostat headache disc was then placed over the site of the catheter exiting the skin. I sutured the catheter to the skin with 3-0 nylon. The counter incisions were dressed with Exofin surgical adhesive. A final flush was given to the catheter. The catheter site was dressed with Tegaderm transparent dressing. We obtained a semi upri
--- NOTE | 2022-12-19 12:31 | PM.PNNEP ---
Progress Note: A&P Assessment and Plan (1) HUE (acute kidney injury): Code(s): N17.9 - Acute kidney failure, unspecified Status: Acute Assessment and Plan: continues to worsen normal creatinine at baseline on 12/16/22, AM labs with a creatinine of 3.5mg/dl repeat labs on 12/16/22, subsequently with a creatinine of 4.3mg/dl on 12/17/22, creatinine up ro 8.3mg/dl today, up to 11.7mg/dl suspect multifactorial etiology: contrast exposure possible antibiotics (zosyn and vancomycin) -- vancomycin trough levels high; vanco caused HUE versus HUE led to vanco retention(?) prerenal factors infection (with progression to ATN) other? evaluation to date: renal ultrasound w/o obstruction but with findings suggestive of CKD nephrotic range proteinuria urine electrolytes non-prerenal urine eosinophils negatve CPK low renal scan noted no improvement with trial of IVFs now mild acidosis, oliguria/anuria, large right pleural effusion attempt HD today (assuming HD catheter will work) follow trend of labs and UOP (2) Pleural effusion, right: Code(s): J90 - Pleural effusion, not elsewhere classified Status: Acute Assessment and Plan: as noted by recent CXR fluid removal with HD to see if this resolve this issue consider right thoracentesis if persists (or unable to get dialysis versus fails to improve with HD) (3) Abscess of scrotum: Code(s): N49.2 - Inflammatory disorders of scrotum Status: Acute Assessment and Plan: s/p I & D of 3 scrotal abscesses (1 of which was a left inguinal abscess) associated with #3 on antibiotics (oral) pain control local wound care Urology following (4) Cellulitis, scrotum: Code(s): N49.2 - Inflammatory disorders of scrotum Status: Acute Assessment and Plan: see #3 Will continue to follow. Subjective Date/time seen: 12/19/22 12:31 Interval history: Follow-up for acute kidney injury/acute renal failure. S/P tunneled HD catheter placement earlier today and tolerated this intervention but did have issues with hypoxia which improved post-procedure (on supplemental oxygen now); unfortunately, despite multiple attempts by youth associate, HD catheter is not functioning properly -- unable to main blood flows of even 150 - 200cc/hr; instilled alteplace/cathflo in catheter to see if this helps; recent CXR notes large right pleural effusion as well; major complaint is that of chest discomfort following HD catheter placement. Exam Narrative: General: WD/WN male in NAD Heart: normal S1 and S2; no rub Lungs: decreased on the right Abdomen: soft, nontender, nondistended, positive bowel sounds Extremities: no cyanosis or clubbing; no edema Skin: no rash; scrotal support/dressings in place Objective Data Vital Signs Vital Signs: Vital Signs Temp Pulse Resp BP Pulse Ox O2 Del Method O2 Flow Rate 12/19/22 11:55 88 22 H 106/57 L 95 Nasal Cannula 3 12/19/22 11:40 83 18 102/60 96 Nasal Cannula 3 12/19/22 11:25 87 20 106/61 94 Nasal Cannula 3 12/19/22 11:10 86 20 104/63 98 Simple Face Mask 6 12/19/22 10:54 97.6 F 89 23 H 86/52 L 92 Simple Face Mask 10 12/19/22 08:00 Room Air 12/19/22 06:00 97.4 F L 90 18 139/93 H 96 12/18/22 20:00 Room Air 12/18/22 22:00 97.1 F L 86 16 116/61 94 Intake/Output Intake/Output: Intake & Output 12/16/22 12/17/22 12/18/22 12/19/22 23:59 23:59 23:59 23:59 Intake Total 1510 800 480 350 Output Total 25 150 Balance 1485 800 480 200 Meds/Results Medications: Active Medications Generic Name Dose Route Start Last Admin Trade Name Freq PRN Reason Stop Dose Admin Acetaminophen 650 mg 12/13/22 07:58 Acetaminophen 325 Mg Tablet PO Q6H PRN Mild Pain (1-3) or Fever Hydrocodone Bitart/Acetaminophen 1 tab 12/13/22 07:58 12/17/22 02:23 Hydrocodo
--- NOTE | 2022-12-19 12:31 | P.PNNP_ITS ---
Progress Note: A&P Assessment and Plan (1) HUE (acute kidney injury): Code(s): N17.9 - Acute kidney failure, unspecified Status: Acute Assessment and Plan: * continues to worsen * normal creatinine at baseline * on 12/16/22, AM labs with a creatinine of 3.5mg/dl * repeat labs on 12/16/22, subsequently with a creatinine of 4.3mg/dl * on 12/17/22, creatinine up ro 8.3mg/dl * today, up to 11.7mg/dl * suspect multifactorial etiology: * contrast exposure * possible antibiotics (zosyn and vancomycin) -- vancomycin trough levels high; vanco caused HUE versus HUE led to vanco retention(?) * prerenal factors * infection (with progression to ATN) * other? * evaluation to date: * renal ultrasound w/o obstruction but with findings suggestive of CKD * nephrotic range proteinuria * urine electrolytes non-prerenal * urine eosinophils negatve * CPK low * renal scan noted * no improvement with trial of IVFs * now mild acidosis, oliguria/anuria, large right pleural effusion * attempt HD today (assuming HD catheter will work) * follow trend of labs and UOP (2) Pleural effusion, right: Code(s): J90 - Pleural effusion, not elsewhere classified Status: Acute Assessment and Plan: * as noted by recent CXR * fluid removal with HD to see if this resolve this issue * consider right thoracentesis if persists (or unable to get dialysis versus fails to improve with HD) (3) Abscess of scrotum: Code(s): N49.2 - Inflammatory disorders of scrotum Status: Acute Assessment and Plan: * s/p I & D of 3 scrotal abscesses (1 of which was a left inguinal abscess) * associated with #3 * on antibiotics (oral) * pain control * local wound care * Urology following (4) Cellulitis, scrotum: Code(s): N49.2 - Inflammatory disorders of scrotum Status: Acute Assessment and Plan: * see #3 Will continue to follow. Subjective Date/time seen: 12/19/22 12:31 Interval history: Follow-up for acute kidney injury/acute renal failure. S/P tunneled HD catheter placement earlier today and tolerated this intervention but did have issues with hypoxia which improved post-procedure (on supplemental oxygen now); unfortunately, despite multiple attempts by sales order clerk, HD catheter is not functioning properly -- unable to main blood flows of even 150 - 200cc/hr; instilled alteplace/cathflo in catheter to see if this helps; recent CXR notes large right pleural effusion as well; major complaint is that of chest discomfort following HD catheter placement. Exam Narrative: General: WD/WN male in NAD Heart: normal S1 and S2; no rub Lungs: decreased on the right Abdomen: soft, nontender, nondistended, positive bowel sounds Extremities: no cyanosis or clubbing; no edema Skin: no rash; scrotal support/dressings in place Objective Data Vital Signs Vital Signs: Vital Signs Temp Pulse Resp BP Pulse Ox O2 Del Method O2 Flow Rate 12/19/22 11:55 88 22 H 106/57 L 95 Nasal Cannula 3 12/19/22 11:40 83 18 102/60 96 Nasal Cannula 12/19/22 11:25 87 20 106/61 94 Nasal Cannula 12/19/22 11:10 86 20 104/63 98 Simple Face Mask 6 12/19/22 10:54 97.6 F 89 23 H 86/52 L 92 Simple Face Mask
[2022-12-19] MEDS: MORPHINE SULFATE (*CRX) 4 MG/ML INJ IV PUSH ×2 (13:48→17:09)
[2022-12-19] MEDS: ALTEPLASE 2 MG VIAL (CATHFLO) IV PUSH (14:28)
[2022-12-19] MEDS: ALBUMIN HUMAN 25% 12.5 GM/50ML 50 ML IVPB (14:46)
--- NOTE | 2022-12-19 14:58 | PC.NURSE ---
I received a message that pt's mother wanted an update. I attempted to return the call but received voicemail. Several attempts made without success.
--- NOTE | 2022-12-19 16:06 | PC.NURSE ---
Pt and his girlfriend, Alexus, are wanting pt to be immediately transferred to [place] as they are concerned about pt's deteriorating condition and needing a higher level of care. I have attempted to contact Dr. Rodríguez, hospitalist, regarding this matter as well as to relate the problems with dialysis catheter but received voicemail.
--- NOTE | 2022-12-19 16:22 | PC.NURSE ---
I have attempted to contact Dr. Rodríguez regarding pt's desire to leave AMA. He and Alexus are worried no one is addressing his worsening condition and want to go to [place]. I received Dr. Rodríguez's voicemail. Message to call as soon as possible left. Charge nurse and community health education coordinator notified of need to speak with Dr. Rodríguez as soon as possible.
--- NOTE | 2022-12-19 16:40 | PC.NURSE ---
I attempted, unsuccessfully, to contact Dr. Rodríguez again. Alexus is adamant that she will be taking pt out AMA, to which pt is currently in agreement, and going to [place] via Uber ride if necessary so that pt can receive the attention and care needed. Message left again.
--- NOTE | 2022-12-19 16:43 | PC.NURSE ---
I received another call from the dialysis nurse informing me that Dr. Grier wants me to call Dr. Travis to inform him the cath-shaun did not work and dialysis was not performed successfully as the central line was not working. I spoke with Dr. Travis who informed me that he would attempt to fix the line tomorrow morning and to have supplies bedside for that effort.
--- NOTE | 2022-12-19 16:55 | PC.NURSE ---
Pt and Alexus have begun packing and gathering pt's belongings and determined to leave AMA. I called Dr. Rodríguez again and left another message. I have asked for the AMA form and informed the charge nurse again that I am still unable to reach the hospitalist. During out conversation the charge nurse texted Dr. Rodríguez and texted pt is leaving AMA to which Dr. Rodríguez replied fairly quickly that I should tell the pt she will come talk to him in a little while. This message was conveyed to the pt and Alexus which further fueled their desire to leave AMA.
--- NOTE | 2022-12-19 18:57 | PC.NURSE ---
Pt was bladder scanned at approximately 17:45. The max urine in bladder was 9mL.
--- NOTE | 2022-12-19 18:58 | PC.NURSE ---
Pt informed me that has not urinated more than the little squirt of water that comes out when you forget to shake the ketchup bottle in the last 2 days. Pt was bladder scanned with a max of 9mL of urine in the bladder.
--- NOTE | 2022-12-19 19:11 | PM.IMPN ---
Progress Note: A&P Assessment and Plan (1) Abscess of scrotum: Code(s): N49.2 - Inflammatory disorders of scrotum Status: Acute Assessment and Plan: Patient presents with complaints of swelling, pain and drainage from his groin area. CT scan shows 12mm abscess in the scrotum, fat stranding consistent with cellulitis and mild adenopathy. Prostate is mildly enlarged related to the inflammatory process. Zosyn and Vanco started. Urology was consulted. BCx NGTD WCx Staph aureus WBC normal now Scrotal US showing Cellulitis with multiple areas of phlegmon/abscess of the scrotum. The largest possible fluid collection measures up to 1.6 cm in the inferior/mid scrotum Pain controlled. I&D 12/14 Continue current pain control. Continue IV abx 12/16: sudden increase in creatinine, likely due to contrast plus vanc and zosyn, d/c all abx, monitor vanc levels, IVF, nephro consult pending 12/17: severe renal failure with minimal urine output, all abx d/c for now, monitor vanc levels 12/18: monitor vanc trough 12/19: Vanc trough continues to drop, still supratherapeutic (2) Cellulitis, scrotum: Code(s): N49.2 - Inflammatory disorders of scrotum Status: Acute Assessment and Plan: As above (3) Inguinal adenopathy: Code(s): R59.0 - Localized enlarged lymph nodes Status: Acute Assessment and Plan: As above (4) Tobacco abuse: Code(s): Z72.0 - Tobacco use Status: Acute Assessment and Plan: Discussed beneftis of smoking cessation. (5) HUE (acute kidney injury): Code(s): N17.9 - Acute kidney failure, unspecified Status: Acute Assessment and Plan: severe, 2/2 vanc + zosyn + contrast appreciate nephrology consult will likely need dialysis, severely low UOP, worsening creatinine over 11, lethargy 12/19: Creatinine up to 15, appreciate Nephrology, dialysis performed today Plan DVT prophylaxis -SCDs Code status -full Subjective Date/time seen: 12/19/22 19:11 Interval history: 27 y/o healthy male here for scrotal and groin redness, pain and swelling. 12/17: No overnight events noted. No chest pain or shortness of breath. No nausea, vomiting or diarrhea. No fevers or chills. He is complaining of some flank discomfort. He also has some abdominal bloating. He denies any urinary output today. He just wants to go home and is sick of needles. 12/18: Patient states he feels worse than yesterday, he feels tired and weak. No NVD, CP/SOB, F/C. 12/19: Patient states he feels little worse than yesterday, very upset about a lot of the care he is receiving. Concerned that he might need to go to [place] for better care. No chest pain, shortness a breath. No nausea, vomiting or diarrhea. No fevers or chills. Review of Systems Review of Systems: 12 point review of systems was assessed and was negative except as noted in the HPI Exam Narrative: General: No acute distress, alert and oriented per baseline HEENT: Atraumatic, normocephalic, mucous membranes moist CV: Regular rate and rhythm, S1, S2 Lungs: Clear to auscultation bilaterally, no rales or crackles noted, no wheezes, good air entry Abdomen: Soft, nontender, nondistended Extremities: Normal to inspection Skin: No rashes noted, no lesions or wounds seen Psych: Limited insight and judgment, anxious Objective Data Vital Signs Vital Signs: Vital Signs - 24 hr 12/18/22 22:00 12/18/22 20:00 12/19/22 06:00 Temperature 97.1 F L 97.4 F L Pulse Rate 86 90 Respiratory Rate 16 18 Blood Pressure 116/61 139/93 H Pulse Oximetry 94 96 Oxygen Delivery Room Air Oxygen Flow Rate 12/19/22 08:00 12/19/22 10:54 12/19/22 11:10 Temperature 97.6 F Pulse Rate 89 86 Respiratory Rate 23 H 20 Blood Pressure 86/52 L 104/63 Pulse Oximetry 92 98 Oxygen Delivery Room Air Simple Face Mask Simple Face Mask Oxygen Flow Rate 10 6 12/19/22 11:2
--- NOTE | 2022-12-19 20:44 | PM.TDS ---
Transfer Discharge Sum: Prov Provider Date of admission: 12/13/22 02:56 Primary care physician: CLINICAL EXERCISE SPECIALIST PHYSICIAN Admitting clinician: Andrzej Harmon MD Attending physician on admission: Andrzej Harmon Consults: 12/13/22 06:45 Consult to Physician Routine Comment: Consulting Provider: Rickey Parker Reason for consultation: Scrotal abscess/cellulitis Has provider been notified: Yes 12/16/22 Consult to Physician Routine Comment: Spoke to 12/16/22 @ 1906 (,) Consulting Provider: Baldo Grier call center analyst/MD group to consult: nephrology Reason for consultation: HUE Has provider been notified: Yes 12/18/22 Consult to Physician Routine Comment: Consulting Provider: Greg Travis Reason for consultation: placement of temporary HD catheter - plan HD tomorrow Has provider been notified: No Attending physician on discharge: Andrzej Harmon Discharging clinician: Greg Travis Anticipated date of transfer: 12/19/22 Receiving physician/facility: Dr. Dustin Read, [place], [place] DS: Admitting Diagnosis Discharge Date 12/19/22 Admitting Diagnosis Scrotal and inguinal abscess Smoker DS: Discharge Diagnosis Discharge Diagnosis (1) Complication of vascular access for dialysis: Code(s): T82.9XXA - Unspecified complication of cardiac and vascular prosthetic device, implant and graft, initial encounter Status: Acute Assessment and Plan: Tunneled dialysis catheter placed this morning using ultrasound and fluoroscopic guidance. Patient had some hypoxemia during the procedure and postprocedure chest x-ray showed pleural effusion but catheter in the distal SVC right atrial junction. Effusion thought to be due to acute kidney failure as creatinine was 15.3 today. Patient unable to dialyze and has been having pain at the catheter site. He is hemodynamically stable. He is on 3 L oxygen with sats in the high 90s. CT scan returned about 8:00 p.m. this evening and showed catheter tip in the right pleural space and large hemo thorax and hematoma right chest with a smaller right pneumothorax. (2) Hemopneumothorax, right: Code(s): J94.2 - Hemothorax Status: Acute Assessment and Plan: Large hemo thorax with large clot small right pneumothorax by CT scan of the chest this evening (3) HUE (acute kidney injury): Code(s): N17.9 - Acute kidney failure, unspecified Status: Acute Assessment and Plan: Multifactorial-severe scrotal abscess, contrast exposure, antibiotics Zosyn and vancomycin. (4) Abscess of scrotum: Code(s): N49.2 - Inflammatory disorders of scrotum Status: Acute Assessment and Plan: Incised and drained 12/15/2022 per Urology. Healing well per Urology since then (5) Tobacco abuse: Code(s): Z72.0 - Tobacco use Status: Chronic Transfer Discharge Sum: Med Medications Active and Home Medications: Home Medications No Home Medications 12/13/22 [History Confirmed 12/13/22] Active Medications Acetaminophen (Acetaminophen 325 Mg Tablet) 650 mg PO Q6H PRN PRN Reason: Mild Pain (1-3) or Fever Hydrocodone Bitart/Acetaminophen (Hydrocodone/Acetaminophen (*Crx) 5-325 Mg Tablet) 1 tab PO Q6H PRN PRN Reason: Pain Rated 4-6 Last Admin: 12/17/22 02:23 Dose: 1 tab Alteplase, Recombinant (Alteplase 2 Mg Vial (Cathflo)) 2 mg IV PUSH ONCE PRN PRN Reason: Line Occlusion Last Admin: 12/19/22 14:28 Dose: 2 mg Alteplase, Recombinant (Alteplase 2 Mg Vial (Cathflo)) 2 mg IV PUSH ONCE PRN PRN Reason: Line Occlusion Cephalexin HCl (Cephalexin 250 Mg Capsule) 250 mg PO Q12HR HOLGER Stop: 12/27/22 21:01 Last Admin: 12/19/22 10:37 Dose: Not Given Albumin Human (Albutein) 50 mls @ 999 mls/hr IVPB Q10M PRN PRN Reason: HYPOTENSION Stop: 01/18/23 08:59 Last Admin: 12/19/22 14:46 Dose: 999 mls/hr Morphine Sulfate (Morphine Sulfate (*Crx) 4 Mg/Ml Inj) 4 mg IV PUSH Q2H PRN PRN
[2022-12-19 21:04] LABS: Basophils Percent Auto 0.2 % (0.2-1.2); Eosinophils Percent Auto 0.2 % (0-4.4); Hematocrit 28.5 % (42.0-52.0); Hemoglobin 9.8 g/dL (14.0-18.0); Immature Granulocyte Absolute 0.21 K/mm3 (0.00-0.031); Immature Granulocyte Percent A 1.3 % (0-0.5); Lymphocytes Absolute Auto 0.85 K/mm3 (0.9-3.2); Lymphocytes Percent Auto 5.1 % (18.3-44.2); Mean Corpuscular HGB Conc 34.4 g/dl (32-36); Mean Corpuscular Hemoglobin 29.8 pg (26-34); Mean Corpuscular Volume 86.6 fl (80-100); Mean Platelet Volume 8.8 fl (7.4-10.4); Monocytes Absolute Auto 1.4 K/mm3 (0.1-0.6); Monocytes Percent Auto 8.4 % (2.6-8.5); Neutrophils Percent Auto 84.8 % (45.5-73.1); Platelet Count Result 235 k/mm3 (150-375); Red Blood Count 3.29 M/mm3 (4.6-6.20); Red Cell Distribution Width 11.8 % (11.5-14.5); White Blood Count 16.5 K/mm3 (4.5-10.0)
[2022-12-19 21:25] LABS: Alanine Aminotransferase 22 U/L (6-50); Albumin Level 3.3 g/dL (3.5-5.1); Alkaline Phosphatase 88 U/L (38-126); Anion Gap 15 mmol/L (8-16); Aspartate Amino Transferase 17 U/L (17-59); Bilirubin,Total 0.5 mg/dL (0.2-1.3); Blood Urea Nitrogen 60 mg/dL (9-20); Calcium 8.2 mg/dL (8.4-10.2); Carbon Dioxide 17 mmol/L (22-30); Chloride 96 mmol/L (98-107); Estimated CRCL calculation 7 ml/min; Estimated Glomerular Filt Rate 4; Glucose 99 mg/dL (65-110); Sodium 128 mmol/L (137-145)
--- NOTE | 2022-12-19 21:34 | PC.NURSE ---
Around 165, Dr. Rodríguez attempted to be reached regarding patient wanting to leave AMA. Around 1700, this RN made contact with Dr. Rodríguez and was notified that patient was wanting to leave AMA. When asked if Dr. Rodríguez could come discuss with patient she noted not right this second. I am sorry. Give me a minute . Noted to Dr. Rodríguez that patient is wanting to leave AMA regarding multiple complaints and concerns. This RN Notified housekeeping cleaner of patient wanting to leave AMA. This RN and housekeeping cleaner discussed with patient and his girlfriend at bedside the medical risk of leaving AMA. After discussion, the patient and girlfriend agreed to stay for further care here. Dr. Rodríguez made aware that patient is agreeable to continue to stay and continue care.
[2022-12-19] MEDS: CEPHALEXIN 250 MG CAPSULE PO (21:37)
--- NOTE | 2022-12-19 22:35 | PC.NURSE ---
Pt would like father Ziyad notified upon departure from this facility
[2022-12-19] MEDS: CALCIUM CARBONATE (TUMS) 500 MG (200 MG ELEMENTAL) 400 MG PO (22:36)
--- NOTE | 2022-12-19 23:09 | PC.NURSE ---
call placed to Dr. Harmon at 21:40, pt asking for 2 Tums for heartburn.
--- NOTE | 2022-12-19 23:46 | ECG_ITS ---
Measurements Intervals [place] Rate: 86 P: 19 NE: 143 QRS: 24 QRSD: 82 T: -2 QT: 350 QTc: 421 Interpretive Statements SINUS RHYTHM POSSIBLE LEFT ATRIAL ENLARGEMENT BORDERLINE ST-T WAVE ABNORMALITY- INFERIOR LEADS BASELINE WANDER- V1-V3 BORDERLINE ECG COMPARED TO ECG 12/17/2022 21:46:27 NO SIGNIFICANT CHANGES Electronically Signed On 12-20-2022 7:04:26 CDT by Jamie Esparza D.O.
[2022-12-20] MEDS: oxyCODONE/ACETAMINOPHEN (*CRX) 5-325 MG TABLET 1 TABLET PO (00:07)
[2022-12-20] MEDS: MORPHINE SULFATE (*CRX) 4 MG/ML INJ IV PUSH (00:50)
--- NOTE | 2022-12-20 01:55 | PC.NURSE ---
the facility accepting patient for transfer has requested that a 2nd IV be established on pt. Pt refusing to have IV placed unless it is in a specific spot chosen by patient. Unable to obtain IV access in the spot chosen by patient. Pt refuses to be stuck anywhere else, therefore is refusing IV at this time. IV to right wrist still remains patent and flushes easily.
[2022-12-20 03:00] VITALS: BP 110/56; PULSE 94; RESP 20; TEMP 36.3; O2SAT 98
[2022-12-22 03:45] LABS: Hepatitis B Core Ab Total Nonreactive (Nonreactive)
[2022-12-22 16:46] LABS: Albumin 2.7 g/dL (3.8-4.8); Alpha 1 Globulin 0.5 g/dL (0.2-0.3); Alpha 2 Globulin 0.9 g/dL (0.5-0.9); Beta 1 Globulin 0.4 g/dL (0.4-0.6); Protein, Total 5.8 g/dL (6.1-8.1)
[2022-12-22 23:20] LABS: Kappa\\Lambda Light Chains 3.77 (0.26-1.65); Lambda Light Chain 31.8 mg/L (5.7-26.3)
[2022-12-23 18:52] LABS: Anti Glomerular Basement Memb <1.0 AI (<1.0)
[2022-12-24 19:39] LABS: Anti Streptolysin O Screen 122 IU/mL (<200)
[2022-12-25 23:00] LABS: ANCA Screen C-ANCA POS (Negative)
[2022-12-25 23:16] LABS: C-ANCA Titer Reflex Chg Test YES
[2022-12-26 14:14] LABS: Cryoglobulin, QL Negative (Negative)
[2022-12-30 14:57] LABS: Creatinine, Random Urine 42 mg/dL (20-320); Total Protein/Creatinine Ratio 26286 mg/g creat (25-148)
== END 2022-12-20 03:27 | disposition short-term general hospital (02) | DRG 951 ==
LOC: ANHED 12-13 02:47 → ANH3MEDSUR 12-13 08:22
PROVIDERS: Internal Medicine; Internal Medicine Nephrology; Student in an Organized Health Care Education/Training Program; Urology; Admitting Provider Family Medicine; Emergency Provider Emergency Medicine; Visit Provider Surgery
PROC: 0Y960ZZ Drainage of Left Inguinal Region, Open Approach (ICD-10-PCS; CPT 54700; principal; 2022-12-15 15:45)
PROC: 0JH63XZ Insertion of Tunneled Vascular Access Device into Chest Subcutaneous Tissue and Fascia, Percutaneous Approach (ICD-10-PCS; CPT 36908; principal; 2022-12-19 09:30)
DX: N49.2 Inflammatory disorders of scrotum (principal); N17.8 Other acute kidney failure; J94.2 Hemothorax; L02.214 Cutaneous abscess of groin; J95.811 Postprocedural pneumothorax; J95.861 Postprocedural hematoma of a respiratory system organ or structure following other procedure; J95.831 Postprocedural hemorrhage of a respiratory system organ or structure following other procedure; J90 Pleural effusion, not elsewhere classified; T82.42XA Displacement of vascular dialysis catheter, initial encounter; B95.61 Methicillin susceptible Staphylococcus aureus infection as the cause of diseases classified elsewhere; T50.8X5A Adverse effect of diagnostic agents, initial encounter; T36.8X5A Adverse effect of other systemic antibiotics, initial encounter; T36.0X5A Adverse effect of penicillins, initial encounter; J95.88 Other intraoperative complications of respiratory system, not elsewhere classified; R09.02 Hypoxemia; F17.210 Nicotine dependence, cigarettes, uncomplicated
CPT/HCPCS: 36415; 71250; 74177; 76775; 76870; 77001; 78707; 80053; 80202; 81001; 81003; 81050; 82550; 82565; 82570; 82595; 83520; 83605; 83883; 84155; 84156; 84165; 84166; 84300; 84484; 84540; 85025; 85999; 86036; 86038; 86060; 86160; 86225; 86235; 86704; 86706; 86850; 86900; 86901; 87040; 87070; 87075; 87086; 87147; 87186; 87205; 87340; 88305; 93005; 93976; 96361; 96365; 96366; 96375; 96376; 99285; A9270; A9562; C1750; G0257; G0378; J0690; J1100; J1200; J1644; J2250; J2270; J2405; J2543; J2704; J2997; J3010; J3370; J7030; J7040; J7120; P9047; Q9967